=== PATIENT | female | born 1950 | race Caucasian/White ===

== ENCOUNTER 2018-07-16 10:05 | Outpatient (REF) | payer MEDICARE, BC, SELFPAY ==
[2018-07-16 12:34] LABS: HCT 39.1 % (36.0-46.0); HGB 12.9 g/dL (12.0-15.5); Mean Corpuscular Hemoglobin 30.1 pg (27.0-33.0); Mean Corpuscular Volume 91.4 fL (80-95); Mean Platelet Volume 11.1 fL (8.0-11.0); Platelet Count 160 x1000/uL (130-400); RBC 4.28 m/cumm (4.00-5.20); RBC Distribution Width 13.7 % (11.7-14.6); White Blood Cell Count 6.03 k/cumm (4.4-10.8)
[2018-07-16 12:40] LABS: ALT 28 U/L (12-78); AST 25 U/L (15-37); Albumin 3.8 g/dL (3.4-5.0); Alkaline Phosphatase 133 U/L (46-116); Bilirubin, Direct 0.24 mg/dL (0.00-0.20); Total Protein 8.2 g/dL (6.4-8.2)
== END 2018-07-16 10:25 ==
LOC: NCHCN 10:05
PROVIDERS: PCP Internal Medicine; Visit Provider Internal Medicine
DX: I10 Essential (primary) hypertension (principal)
CPT/HCPCS: 80076; 85027

== ENCOUNTER 2019-01-14 11:09 | Outpatient (REF) | payer MEDICARE, BC, SELFPAY ==
[2019-01-14 13:21] LABS: HCT 36.9 % (36.0-46.0); HGB 11.8 g/dL (12.0-15.5); Mean Corpuscular Hemoglobin 29.4 pg (27.0-33.0); Mean Corpuscular Volume 91.8 fL (80-95); Mean Platelet Volume 11.5 fL (8.0-11.0); Platelet Count 126 x1000/uL (130-400); RBC 4.02 m/cumm (4.00-5.20); RBC Distribution Width 13.6 % (11.7-14.6)
[2019-01-14 13:32] LABS: INR 1.1 (0.9-1.1); Prothrombin Time 11.4 sec (9.3-11.0)
[2019-01-14 13:43] LABS: ALT 27 U/L (12-78); AST 27 U/L (15-37); Albumin 3.6 g/dL (3.4-5.0); Alkaline Phosphatase 113 U/L (46-116); Anion Gap 10.7 mmol/L (3-11); BUN 16 mg/dL (7-18); Bilirubin, Total 0.8 mg/dL (0.2-1.0); CO2 23.3 mmol/L (21.0-32.0); CREATININE 0.89 mg/dL (0.55-1.02); Calcium 8.8 mg/dL (8.5-10.1); Chloride 109 mmol/L (98-107); Glucose 123 mg/dL (70-100); Potassium 4.3 mmol/L (3.5-5.1); Sodium 143 mmol/L (136-145); Total Protein 7.6 g/dL (6.4-8.2)
[2019-01-14 14:24] LABS: Absolute Basophil Count 0.03 k/cumm (0.0-0.2)
[2019-01-14 15:40] LABS: Absolute Lymphocyte Count 0.84 k/cumm (1.2-3.4); Absolute Monocyte Count 0.44 k/cumm (0.11-0.7); Absolute Neutrophil Count 1.39 k/cumm (1.2-6.7); Atypical Lymphocytes % 7
[2019-01-14 15:41] LABS: Diff Comment Manual Differential; Ovalocytes 2+
[2019-01-15 10:44] LABS: CA 19-9 58 U/mL (<35)
== END 2019-01-14 11:29 ==
LOC: NCHCN 11:09
PROVIDERS: PCP Internal Medicine; Visit Provider Internal Medicine
DX: D61.818 Other pancytopenia (principal); K83.09 Other cholangitis; R97.8 Other abnormal tumor markers
CPT/HCPCS: 80053; 85027; 82248; 85007; 85610; 86301

== ENCOUNTER 2019-03-25 00:39 | Outpatient (CLI) | payer MEDICARE, BC, SELFPAY ==
--- NOTE | 2019-03-25 15:30 | DI.MAMMO_ITS ---
SYMPTOMS/DIAGNOSIS: SCREENING, Z12.31 MAMMOGRAM: Mammograms were interpreted according to the usual protocol including computer analysis with CAD system, tomosynthesis and C view imaging. Comparison is made with exams from 2010 through 2017. The breasts are composed of heterogeneously dense fibroglandular tissue, breast density Category C. No suspicious masses or suspicious microcalcifications are seen. There has been no significant change. IMPRESSION: Category I, negative mammogram. Yearly screening mammography is recommended. [facility] ASSESSMENT OF FINDINGS: Negative. Category 1. Patient will receive a letter notifying them of these results. Bi-RADS category C. The breasts are heterogeneously dense, which may obscure small masses.
== END 2019-03-25 00:59 ==
PROVIDERS: PCP Internal Medicine; Visit Provider Internal Medicine
DX: Z12.31 Encounter for screening mammogram for malignant neoplasm of breast (principal)
CPT/HCPCS: 77063; 77067

== ENCOUNTER 2019-07-16 10:46 | Outpatient (REF) | payer MEDICARE, BC, SELFPAY ==
[2019-07-16 22:11] LABS: HCT 37.5 % (36.0-46.0); HGB 12.1 g/dL (12.0-15.5); Mean Corp. HGB Concentration 32.3 g/dL (32.0-36.0); Mean Corpuscular Hemoglobin 29.2 pg (27.0-33.0); Mean Corpuscular Volume 90.4 fL (80-95); Mean Platelet Volume 11.5 fL (8.0-11.0); Platelet Count 152 x1000/uL (130-400); RBC 4.15 m/cumm (4.00-5.20); White Blood Cell Count 4.79 k/cumm (4.4-10.8)
[2019-07-16 22:28] LABS: ALT 22 U/L (14-59); AST 22 U/L (15-37); Albumin 3.8 g/dL (3.4-5.0); Alkaline Phosphatase 113 U/L (46-116); Anion Gap 8.8 mmol/L (3-11); BUN 17 mg/dL (7-18); Bilirubin, Total 1.3 mg/dL (0.2-1.0); CO2 26.2 mmol/L (21.0-32.0); CREATININE 0.95 mg/dL (0.55-1.02); Calcium 9.2 mg/dL (8.5-10.1); Chloride 108 mmol/L (98-107); Estimated GFR 58.85 (mL/min/1.73m2); Glucose 116 mg/dL (74-106); Potassium 4.4 mmol/L (3.5-5.1); Sodium 143 mmol/L (136-145); Total Protein 7.7 g/dL (6.4-8.2)
[2019-07-16 23:02] LABS: INR 1.1 (0.9-1.1); Prothrombin Time 11.4 sec (9.3-11.0)
[2019-07-18 13:52] LABS: CA 19-9 76 U/mL (<35)
== END 2019-07-16 11:06 ==
LOC: NCHCN 10:46
PROVIDERS: PCP Internal Medicine; Visit Provider Internal Medicine
DX: D61.818 Other pancytopenia (principal); K83.01 Primary sclerosing cholangitis; K74.5 Biliary cirrhosis, unspecified; R97.8 Other abnormal tumor markers
CPT/HCPCS: 80053; 85027; 85610; 86301

== ENCOUNTER 2020-01-12 10:42 | Outpatient (REF) | payer MEDICARE, BC, SELFPAY ==
[2020-01-12 22:36] LABS: HCT 37.7 % (36.0-46.0); HGB 12.1 g/dL (12.0-15.5); Mean Corp. HGB Concentration 32.1 g/dL (32.0-36.0); Mean Corpuscular Hemoglobin 29.4 pg (27.0-33.0); Mean Corpuscular Volume 91.7 fL (80-95); Mean Platelet Volume 12.3 fL (8.0-11.0); Platelet Count 144 x1000/uL (130-400); RBC 4.11 m/cumm (4.00-5.20); RBC Distribution Width 13.8 % (11.7-14.6); White Blood Cell Count 4.66 k/cumm (4.4-10.8)
[2020-01-12 23:10] LABS: ALT 25 U/L (14-59); AST 22 U/L (15-37); Albumin 3.8 g/dL (3.4-5.0); Alkaline Phosphatase 108 U/L (46-116); Anion Gap 8.8 mmol/L (3-11); BUN 16 mg/dL (7-18); Bilirubin, Direct 0.23 mg/dL (0.00-0.20); CO2 27.2 mmol/L (21.0-32.0); CREATININE 1.02 mg/dL (0.55-1.02); Calcium 8.9 mg/dL (8.5-10.1); Chloride 107 mmol/L (98-107); Estimated GFR 54.05 (mL/min/1.73m2); Glucose 148 mg/dL (74-106); Potassium 4.3 mmol/L (3.5-5.1); Sodium 143 mmol/L (136-145); Total Protein 7.5 g/dL (6.4-8.2)
== END 2020-01-12 11:02 ==
LOC: NCHCN 10:42
PROVIDERS: PCP Internal Medicine; Visit Provider Internal Medicine
DX: D50.9 Iron deficiency anemia, unspecified (principal); I10 Essential (primary) hypertension; K74.5 Biliary cirrhosis, unspecified
CPT/HCPCS: 80053; 80076; 85027

== ENCOUNTER 2020-03-22 00:42 | Outpatient (CLI) | payer MEDICARE, BC, SELFPAY ==
--- NOTE | 2020-03-22 | DI.US_ITS ---
EXAM: US ABDOMEN CLINICAL HISTORY: EPIGASTRIC ABD PAIN,R10.13 TECHNIQUE: Ultrasound performed using standard protocol. COMPARISON: No exams were available for comparison FINDINGS: The hepatic parenchyma appears of increased echogenicity with a coarse echotexture. No focal hepatic lesion seen. There is cholelithiasis without gallbladder wall thickening or pericholecystic fluid c ollection. Negative sonographic Boss sign. No biliary dilatation. Note is made of an apparent thrombus in the splenic vein at the portal confluence. This is of uncert ain age with somewhat increased echogenicity of the apparent thrombus and no evidence of occlusion. Flow is normal directional in the portal circulation. Pancreas unremarkable in appearance by ultrasound criteria. The kidneys appear normal with no hydron ephrosis or nephrolithiasis. Abdominal aorta and IVC are of normal diameter. Spleen is mildly enlarged with splenic varices noted . IMPRESSION: Cholelithiasis without ultrasound evidence of acute cholecystitis. Splenic vein apparent thrombus, other etiologies including intraluminal neoplasm not absolutely exclu ded but extremely unlikely. Thrombus is nonocclusive. Hepatic coarse echotexture and increased echogenicity with splenomegaly, the patient reportedly has h epatic cirrhosis. 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 Normal directional portal flow noted. DATA REPOSITORY:
== END 2020-03-22 01:02 ==
PROVIDERS: PCP Internal Medicine; Visit Provider Internal Medicine
DX: K80.20 Calculus of gallbladder without cholecystitis without obstruction (principal); R10.13 Epigastric pain; I82.890 Acute embolism and thrombosis of other specified veins
CPT/HCPCS: 76700

== ENCOUNTER 2020-04-12 17:24 | Outpatient (REF) | payer MEDICARE, BC, SELFPAY ==
[2020-04-12 22:03] LABS: BUN 17 mg/dL (7-18); CREATININE 0.79 mg/dL (0.55-1.02)
== END 2020-04-12 17:44 ==
LOC: NCHCN 17:24
PROVIDERS: PCP Internal Medicine; Visit Provider Internal Medicine
DX: K80.20 Calculus of gallbladder without cholecystitis without obstruction (principal); K83.09 Other cholangitis; R93.3 Abnormal findings on diagnostic imaging of other parts of digestive tract; Z01.812 Encounter for preprocedural laboratory examination
CPT/HCPCS: 84520; 82565

== ENCOUNTER 2020-06-29 22:22 | Outpatient (REF) | payer MEDICARE, BC, SELFPAY ==
[2020-06-29 22:30] LABS: HCT 39.9 % (36.0-46.0); HGB 12.6 g/dL (11.2-15.7); MCH 29.6 pg (27.0-33.0); MCHC 31.6 % (32.0-36.0); MCV 93.7 fL (80-95); MPV 11.7 fL (8.0-11.0); Platelet Count 140 10^3/uL (130-400); RBC 4.26 10^6/uL (3.93-5.22); RDW 13.4 % (11.7-14.6); RDW-SD 45.7 fL; WBC 5.11 10^3/uL (4.4-10.8)
[2020-07-02 11:06] LABS: CA 19-9 61 U/mL (<35)
== END 2020-06-29 22:42 ==
LOC: NCHCN 22:22
PROVIDERS: PCP Internal Medicine; Visit Provider Internal Medicine
DX: R97.8 Other abnormal tumor markers (principal); D50.9 Iron deficiency anemia, unspecified
CPT/HCPCS: 85027; 86301

== ENCOUNTER 2020-12-28 15:24 | Outpatient (REF) | payer MEDICARE, BC, SELFPAY ==
[2020-12-28 13:40] LABS: HCT 37.4 % (36.0-46.0); HGB 12.3 g/dL (11.2-15.7); MCH 29.6 pg (27.0-33.0); MCHC 32.9 % (32.0-36.0); MCV 89.9 fL (80-95); MPV 11.7 fL (8.0-11.0); Platelet Count 148 10^3/uL (130-400); RBC 4.16 10^6/uL (3.93-5.22); RDW 13.6 % (11.7-14.6); RDW-SD 44.8 fL; WBC 5.89 10^3/uL (4.4-10.8)
[2020-12-28 13:42] LABS: INR 1.1 (0.9-1.1); Prothrombin Time 11.1 sec (9.3-11.0)
[2020-12-28 14:05] LABS: AST 26 U/L (15-37); Albumin 3.8 g/dL (3.4-5.0); Alkaline Phosphatase 137 U/L (46-116); Anion Gap 12.2 mmol/L (3-11); BUN 15 mg/dL (7-18); Bilirubin, Total 0.9 mg/dL (0.2-1.0); CO2 25.8 mmol/L (21.0-32.0); CREATININE 0.8 mg/dL (0.55-1.02); Calcium 9.1 mg/dL (8.5-10.1); Chloride 108 mmol/L (98-107); Sodium 146 mmol/L (136-145)
[2020-12-28 14:27] LABS: Glucose 151 mg/dL (74-106)
[2020-12-28 14:28] LABS: ALT 23 U/L (14-59); Bilirubin, Direct 0.2 mg/dL (0.0-0.2); Potassium 4.7 mmol/L (3.5-5.1)
[2020-12-29 10:08] LABS: CA 19-9 100 U/mL (<35)
== END 2020-12-28 15:25 | disposition home or self-care (01) ==
LOC: NCHCN 15:24
PROVIDERS: PCP Internal Medicine; Visit Provider Internal Medicine
DX: R97.8 Other abnormal tumor markers (principal); R93.5 Abnormal findings on diagnostic imaging of other abdominal regions, including retroperitoneum; R10.13 Epigastric pain; D61.818 Other pancytopenia; R53.83 Other fatigue; K74.5 Biliary cirrhosis, unspecified; D50.9 Iron deficiency anemia, unspecified; I10 Essential (primary) hypertension
CPT/HCPCS: 80053; 80076; 85027; 85610; 86301

== ENCOUNTER 2021-06-29 16:36 | Outpatient (REF) | payer MEDICARE, BC, SELFPAY ==
[2021-06-29 22:46] LABS: INR 1.1 (0.9-1.1); Prothrombin Time 11.1 sec (9.3-11.0)
[2021-06-29 22:52] LABS: ALT 21 U/L (14-59); AST 24 U/L (15-37); Albumin 3.9 g/dL (3.4-5.0); Alkaline Phosphatase 124 U/L (46-116); Anion Gap 11.2 mmol/L (3-11); BUN 19 mg/dL (7-18); Bilirubin, Total 1.2 mg/dL (0.2-1.0); CO2 23.8 mmol/L (21.0-32.0); CREATININE 0.8 mg/dL (0.55-1.02); Calcium 8.3 mg/dL (8.5-10.1); Chloride 106 mmol/L (98-107); Glucose 152 mg/dL (74-106); Sodium 141 mmol/L (136-145); Total Protein 7.6 g/dL (6.4-8.2)
[2021-07-01 09:55] LABS: CA 19-9 79 U/mL (<35)
== END 2021-06-29 16:37 | disposition home or self-care (01) ==
LOC: NCHCN 16:36
PROVIDERS: PCP Internal Medicine; Visit Provider Internal Medicine
DX: K74.5 Biliary cirrhosis, unspecified (principal); R97.8 Other abnormal tumor markers; I10 Essential (primary) hypertension
CPT/HCPCS: 80053; 85610; 86301

== ENCOUNTER 2021-08-25 16:20 | Outpatient (REF) | payer MEDICARE, BC, SELFPAY ==
[2021-08-25 21:11] LABS: Abs Immature Grans 0.01 10^3/uL (0.0-0.06); Absolute Basophil Count 0.08 10^3/uL (0.0-0.2); Absolute Eosinophil Count 0.26 10^3/uL (0.0-0.7); Absolute Lymphocyte Count 1.77 10^3/uL (1.2-3.4); Absolute Monocyte Count 0.76 10^3/uL (0.1-0.8); Absolute Neutrophil Count 3.49 10^3/uL (1.2-6.7); Basophils % 1.3; Eosinophils % 4.1; HCT 39.8 % (36.0-46.0); HGB 12.6 g/dL (11.2-15.7); Immature Grans % 0.2; Lymphocytes % 27.8; MCH 30.1 pg (27.0-33.0); MCHC 31.7 % (32.0-36.0); Monocytes % 11.9; Neutrophils % 54.7; Nucleated RBC 0 %; Platelet Count 154 10^3/uL (130-400); RBC 4.19 10^6/uL (3.93-5.22); RDW 13.6 % (11.7-14.6); RDW-SD 47.7 fL; WBC 6.37 10^3/uL (4.4-10.8)
[2021-08-25 21:23] LABS: ALT 14 U/L (14-59); AST 19 U/L (15-37); Albumin 3.8 g/dL (3.4-5.0); Alkaline Phosphatase 123 U/L (46-116); Anion Gap 10.2 mmol/L (3-11); BUN 18 mg/dL (7-18); Bilirubin, Total 0.9 mg/dL (0.2-1.0); CO2 26.8 mmol/L (21.0-32.0); CREATININE 1.1 mg/dL (0.55-1.02); Calcium 9.2 mg/dL (8.5-10.1); Chloride 108 mmol/L (98-107); Estimated GFR 49.25 (mL/min/1.73m2); Glucose 118 mg/dL (74-106); Potassium 4.7 mmol/L (3.5-5.1); Sodium 145 mmol/L (136-145); Total Protein 7.8 g/dL (6.4-8.2)
== END 2021-08-25 16:21 | disposition home or self-care (01) ==
LOC: NCHCN 16:20
PROVIDERS: PCP Internal Medicine; Visit Provider Internal Medicine
DX: R42 Dizziness and giddiness (principal)
CPT/HCPCS: 80053; 85025

== ENCOUNTER 2021-09-15 01:08 | Outpatient (CLI) | payer MEDICARE, BC, SELFPAY ==
--- NOTE | 2021-09-15 | DI.MAMMO_ITS ---
Exam(s) MAMMO SCREENING EXAM: MAMMO SCREENING CLINICAL HISTORY: SCREENING, Z12.39 TECHNIQUE: Bilateral full field digital CC and MLO mammographic images were obtained with 3D tomosyn thesis and utilizing computer aided detection (CAD). COMPARISON: Available for comparison. FINDINGS: Masses/Architectural Distortion: None seen. Microcalcifications: No suspicious pleomorphic-type are seen. Skin Thickening/Nipple Retraction: None. IMPRESSION: 1. No significant interval change with no specific features of malignancy noted. 2. Unless there is more urgent need, screening mammography is recommended, as per [employer] guidelines. BI-RADS Category 1 - Negative Breast Density - Category C - Heterogeneously dense Breast density category C or D implies that the patient has dense breast tissue. Dense breast tissue is very common and is not abnormal but dense breast tissue can make it harder to find cancer on a ma mmogram. Also, dense breast tissue may increase their breast cancer risk. This information about the result of the mammogram report was provided to the patient to raise their awareness. Use this report when you speak with the patient about their risks for breast cancer, which includes their family hist ory. At that time, you may recommend for more screening tests (Ultrasound or MRI) as they might be us eful based on their risk. A negative radiographic report should not delay biopsy if a dominant or clinically suspicious mass is present. Up to ten percent of cancers are not identified on mammography. A negative report may reinforce clinical impression. Adenosis and dense breasts may obscure an underlying neoplasm. False positive reports average 6 to 10%. Patient will receive a letter notifying them of these results.
== END 2021-09-15 01:28 ==
PROVIDERS: PCP Internal Medicine; Visit Provider Internal Medicine
DX: Z12.31 Encounter for screening mammogram for malignant neoplasm of breast (principal); R92.8 Other abnormal and inconclusive findings on diagnostic imaging of breast
CPT/HCPCS: 77063; 77067

== ENCOUNTER 2021-11-07 18:34 | Outpatient (REF) | payer MEDICARE, BC, SELFPAY ==
[2021-11-07 19:38] LABS: CREATININE 0.9 mg/dL (0.55-1.02)
== END 2021-11-07 18:35 | disposition home or self-care (01) ==
LOC: NCHCN 18:34
PROVIDERS: PCP Internal Medicine; Visit Provider Internal Medicine
DX: K74.5 Biliary cirrhosis, unspecified (principal)
CPT/HCPCS: 82565

== ENCOUNTER 2021-12-28 18:57 | Outpatient (REF) | payer MEDICARE, BC, SELFPAY ==
[2021-12-28 15:28] LABS: INR 1.1 (0.9-1.1); Prothrombin Time 11.3 sec (9.3-11.0)
[2021-12-28 15:54] LABS: ALT 20 U/L (14-59); AST 20 U/L (15-37); Albumin 3.9 g/dL (3.4-5.0); Alkaline Phosphatase 145 U/L (46-116); Anion Gap 10.5 mmol/L (3-11); BUN 16 mg/dL (7-18); Bilirubin, Total 1.1 mg/dL (0.2-1.0); CO2 25.5 mmol/L (21.0-32.0); CREATININE 1.1 mg/dL (0.55-1.02); Calcium 9.1 mg/dL (8.5-10.1); Chloride 110 mmol/L (98-107); Estimated GFR 49.25 (mL/min/1.73m2); Glucose 142 mg/dL (74-106); Sodium 146 mmol/L (136-145); Total Protein 7.8 g/dL (6.4-8.2)
[2021-12-30 10:45] LABS: CA 19-9 66 U/mL (<35)
== END 2021-12-28 18:58 | disposition home or self-care (01) ==
LOC: NCHCN 18:57
PROVIDERS: PCP Internal Medicine; Visit Provider Internal Medicine
DX: K74.5 Biliary cirrhosis, unspecified (principal); R97.8 Other abnormal tumor markers; D50.9 Iron deficiency anemia, unspecified; I10 Essential (primary) hypertension
CPT/HCPCS: 80053; 85610; 86301

== ENCOUNTER 2022-06-30 13:10 | Outpatient (REF) | payer MEDICARE, BC, SELFPAY ==
[2022-06-30 15:37] LABS: HCT 39.8 % (36.0-46.0); HGB 13.2 g/dL (11.2-15.7); MCH 30.4 pg (27.0-33.0); MCHC 33.2 % (32.0-36.0); MCV 92 fL (80-95); MPV 11.6 fL (8.0-11.0); Platelet Count 161 10^3/uL (130-400); RBC 4.34 10^6/uL (3.93-5.22); RDW 13.7 % (11.7-14.6); RDW-SD 46.6 fL; WBC 5.34 10^3/uL (4.4-10.8)
[2022-06-30 15:54] LABS: INR 1.1 (0.9-1.1)
[2022-06-30 16:08] LABS: ALT 21 U/L (14-59); AST 27 U/L (15-37); Albumin 3.9 g/dL (3.4-5.0); Alkaline Phosphatase 127 U/L (46-116); BUN 16 mg/dL (7-18); Bilirubin, Total 1.2 mg/dL (0.2-1.0); Calcium 9.4 mg/dL (8.5-10.1); Chloride 107 mmol/L (98-107); Estimated GFR 60.98 (mL/min/1.73m2); Glucose 139 mg/dL (74-106); Potassium 4.7 mmol/L (3.5-5.1); Sodium 145 mmol/L (136-145); Total Protein 7.9 g/dL (6.4-8.2)
[2022-07-03 09:21] LABS: CA 19-9 57 U/mL (<35)
== END 2022-06-30 13:11 | disposition home or self-care (01) ==
LOC: NCHCN 13:10
PROVIDERS: PCP Internal Medicine; Visit Provider Internal Medicine
DX: R97.8 Other abnormal tumor markers (principal); D50.9 Iron deficiency anemia, unspecified; D61.818 Other pancytopenia
CPT/HCPCS: 80053; 85027; 85610; 86301

== ENCOUNTER 2022-07-20 11:05 | Emergency (ER) | payer MEDICARE, BC, SELFPAY ==
--- NOTE | 2022-07-20 11:07 | W.ED.GENAD ---
Discharge Plan Disposition Patient Disposition: Home Condition: Stable Discharge Details Clinical Impression: Abdominal pain Primary Care Provider: Mj Carrera ED Provider: Quoc Beal Home Meds and New Rx's Prescriptions: Continued clobetasol 60 GM cream 15 gm Topical DAILY ZOVIRAX 2 GM CREAM..G. 2 gm Topical Q4H PRN Qty: 1 1RF Label Comments: pt has not used in a while 04/30/16 mupirocin calcium 15 GM cream 15 gm Topical omeprazole 40 MG capsule,delayed release(DR/EC) 40 mg PO DAILY docusate sodium [Colace] 100 MG capsule 100 mg PO BID nadolol 40 MG tablet 40 mg PO DAILY ondansetron 4 MG tablet,disintegrating 4 mg PO PRN Label Comments: pt has not used in a while 04.30.16 GNC Probiotic PO DAILY Qty: 1 Discharge Instructions Instructions: Abdominal Pain (ED), Biliary Colic (ED) Additional Instructions: At this time your work-up does not reveal any obvious emergent process. Clear liquid diet, advance fatty, fried, greasy foods. Please watch for new or worsening symptoms and return to the ER for any concerns. Lastly, I would like you to reach out to your PCP office, I spoke with them today regarding your visit, to discuss your ongoing symptoms, potential need for outpatient reevaluation through GI and/or surgery at a higher level of care given your sclerotic liver disease. Medical Decision Making This is a 71-year-old female with autoimmune liver sclerosis, known gallstones, anemia, hypertension, presenting to the ER reporting right abdominal and back pain that been present for the past 36 hours or so, came on gradually, maxed yesterday as a 9 out of 10, improved today down to a 5-10, currently asymptomatic. Reports minimal nausea which has resolved. Denies fever, chest pain, shortness of breath, change in bowel or bladder function. Patient reports decreased appetite because she is afraid to eat. Clinically evaluation is most consistent with biliary colic; however, given her age, will obtain EKG and a single troponin given the duration of her symptoms. Laboratory values reveal no evidence of leukocytosis. Electrolytes unremarkable, renal function reveals creatinine of 0.9 with a GFR of 69.20. Total bili is 1.5; however, when reviewing previous medical records it looks as though she does tend to run slightly elevated. AST and ALT normal. Alk phosphatase mildly elevated at 138, this too appears to be near her baseline. Lipase normal at 114. Troponin negative at less than 50. Ultrasound reveals a cirrhotic appearing liver, no biliary dilatation. Portal vein not visualized. Cholelithiasis and gallbladder polyps, no evidence of acute cholecystitis. I discussed the patient's work-up with Dr. Pope, patient has been seen by surgery-GI at [facility] in the past. Will likely need outpatient follow-up at higher level of care given her cirrhotic liver disease, this can likely happen at [facility] or [facility]. Discussed work-up with patient, discussed my conversation with her PCP office as well. Patient reports feeling well and is comfortable discharge. We did discuss dietary restrictions. Strict discharge and return precautions were provided. Patient understands, is agreeable to this plan, and has no additional questions or concerns upon discharge. This documentation was generated using [employer] system, please disregard any oddities of phrase or misspellings. Medical Records Medical records reviewed: Yes I reviewed the patient's medical records. Imaging Data Radiologic Study: Attestation: I personally reviewed and interpreted this imaging study as follows: Imaging: Ultrasound Radiologist's impression: Exam(s) US ABDOMEN LIMITED EXAM: US ABDOMEN LIMITED CLINICAL HISTORY: RUQ pain TECHNIQUE: Ultrasound abdomen performed using standard protocol. COMPARISON: CT ABD/PELVIS WO W CONTRAST from 02/20/2014 US US ABDOMEN from 03/22/2020 FINDINGS: LIVER: Thin normal limits of size. Heterogeneous echotexture worsening compared with prior. Nodular liver surface.. No focal liver lesions are seen.. Portal vein not visualized. GALLBLADDER: Cholelithiasis. Several polyps noted, largest measuring 9 millimeters. No evidence of wall thickening. No pericholecystic fluid identified. NIEVES'S SIGN: Negative. BILIARY SYSTEM: No intrahepatic or extrahepatic biliary ductal dilation. Right kidney: Not well visualized. Apparent loss of corticomedullary differentiation. No hydronephrosis. PANCREAS: Normal where visualized. ABDOMINAL AORTA AND IVC: Visualized portions normal caliber. ASCITES: None seen. IMPRESSION: Cirrhotic appearing liver. No biliary dilatation. Portal vein not visualized. Cholelithiasis and gallbladder polyps. No evidence of acute cholecystitis. Lab Data Lab results reviewed: Yes I reviewed the patient's lab results. Labs: Laboratory Tests Range/Units 07/20/22 07/20/22 07/20/22 11:15 11:15 11:15 WBC (4.4-10.8) 10^3/uL 8.33 RBC (3.93-5.22) 10^6/uL 4.50 Hgb (11.2-15.7) g/dL 13.4 Hct (36.0-46.0) % 40.3 MCV (80-95) fL 90 MCH (27.0-33.0) pg 29.8 MCHC (32.0-36.0) % 33.3 RDW (11.7-14.6) % 13.6 Plt Count (130-400) 10^3/uL 190 MPV (8.0-11.0) fL 10.3 Immature Gran % 0.4 Neutrophils % 66.6 Lymphocytes % 19.0 Monocytes % 10.8 Eosinophils % 2.6 Basophils % 0.6 Nucleated RBC % (0.0-0.3) % 0.0 Absolute Neutrophils (1.2-6.7) 10^3/uL 5.55 Absolute Lymphocytes (1.2-3.4) 10^3/uL 1.58 Absolute Monocytes (0.1-0.8) 10^3/uL 0.90 H Absolute Eosinophils (0.0-0.7) 10^3/uL 0.22 Absolute Basophils (0.0-0.2) 10^3/uL 0.05 Sodium (136-145) mmol/L 138 Potassium (3.5-5.1) mmol/L 3.8 Chloride (98-107) mmol/L 104 Carbon Dioxide (21.0-32.0) mmol/L 25.2 Anion Gap (3-11) mmol/L 8.8 BUN (7-18) mg/dL 14 Creatinine (0.55-1.02) mg/dL 0.9 Est GFR (CKD-EPI 2020) (mL/min/1.73m2) 69.20 Glucose (74-106) mg/dL 104 Calcium (8.5-10.1) mg/dL 9.3 Total Bilirubin (0.2-1.0) mg/dL 1.5 H AST (15-37) U/L 27 ALT (14-59) U/L 20 Alkaline Phosphatase (46-116) U/L 138 H Troponin I (<or=60) ng/L < 50 Total Protein (6.4-8.2) g/dL 8.5 H Albumin (3.4-5.0) g/dL 3.9 Lipase (73-393) U/L 114 Urine Color (Yellow) Urine Clarity (Clear) Urine pH (5-8) Ur Specific [place] (1.005-1.025) Urine Protein (Negative) mg/dL Urine Ketones (Negative) mg/dL Urine Blood (Negative) Urine Nitrite (Negative) Urine Bilirubin (Negative) Urine Urobilinogen (Up TO 0.2) EU/dL Ur Leukocyte Esterase (Negative) Urine RBC (0-2) HPF Urine WBC (0-5) HPF Ur Epithelial Cells (Negative) HPF Urine Crystals (Negative) HPF Urine Bacteria (Negative) HPF Urine Casts (Negative) LPF Urine Mucus (Negative) Ur Culture Indicated? Urine Glucose (Negative) mg/dL Range/Units 07/20/22 11:20 WBC (4.4-10.8) 10^3/uL RBC (3.93-5.22) 10^6/uL Hgb (11.2-15.7) g/dL Hct (36.0-46.0) % MCV (80-95) fL MCH (27.0-33.0) pg MCHC (32.0-36.0) % RDW (11.7-14.6) % Plt Count (130-400) 10^3/uL MPV (8.0-11.0) fL Immature Gran % Neutrophils % Lymphocytes % Monocytes % Eosinophils % Basophils % Nucleated RBC % (0.0-0.3) % Absolute Neutrophils (1.2-6.7) 10^3/uL Absolute Lymphocytes (1.2-3.4) 10^3/uL Absolute Monocytes (0.1-0.8) 10^3/uL Absolute Eosinophils (0.0-0.7) 10^3/uL Absolute Basophils (0.0-0.2) 10^3/uL Sodium (136-145) mmol/L Potassium (3.5-5.1) mmol/L Chloride (98-107) mmol/L Carbon Dioxide (21.0-32.0) mmol/L Anion Gap (3-11) mmol/L BUN (7-18) mg/dL Creatinine (0.55-1.02) mg/dL Est GFR (CKD-EPI 2020) (mL/min/1.73m2) Glucose (74-106) mg/dL Calcium (8.5-10.1) mg/dL Total Bilirubin (0.2-1.0) mg/dL AST (15-37) U/L ALT (14-59) U/L Alkaline Phosphatase (46-116) U/L Troponin I (<or=60) ng/L Total Protein (6.4-8.2) g/dL Albumin (3.4-5.0) g/dL Lipase (73-393) U/L Urine Color (Yellow) Yellow Urine Clarity (Clear) Clear Urine pH (5-8) 7.0 Ur Specific [place] (1.005-1.025) 1.015 Urine Protein (Negative) mg/dL Negative Urine Ketones (Negative) mg/dL Negative Urine Blood (Negative) Small H Urine Nitrite (Negative) Negative Urine Bilirubin (Negative) Negative Urine Urobilinogen (Up TO 0.2) EU/dL 0.2 Ur Leukocyte Esterase (Negative) Negative Urine RBC (0-2) HPF 3-5 H Urine WBC (0-5) HPF Negative Ur Epithelial Cells (Negative) HPF Rare Urine Crystals (Negative) HPF Negative Urine Bacteria (Negative) HPF Negative Urine Casts (Negative) LPF Negative Urine Mucus (Negative) Negative Ur Culture Indicated? No Urine Glucose (Negative) mg/dL Negative ECG Data Attestation: I personally reviewed and interpreted this ECG (s) as follows: Interpretation: Sinus rhythm, ventricular rate of 65, LVH, no STEMI HPI General Mode of arrival: ambulatory. Date/Time Provider Initiated Documentation: 07/20/22 11:06. Limitations to Documentation: no limitations. Information obtained by: patient. History of Present Illness 71 year old F presents to the emergency department with the chief complaint of RUQ pain, described as moderate, with intensity rated at 4 (yesterday was 9). Quality is described as aching, and is localized to the abdomen. Patient reports radiation to back. Patient started experiencing this day(s) (2) and it has been intermittent. No relieving factors improve symptom(s), No exacerbating factors reported . Patient notes nausea/vomiting (mild nausea, resolved now). Patient did receive the following treatments prior to arrival, none Related Data Home Medications Medication Instructions Recorded Confirmed clobetasol 0.05 % topical cream 15 gm topical DAILY 03/04/13 07/20/22 mupirocin calcium 2 % topical cream 15 gm topical 02/27/14 08/31/14 omeprazole 40 mg capsule,delayed 40 mg PO DAILY 02/16/15 07/20/22 release Gnc Probiotic PO DAILY ##1 07/07/15 docusate sodium 100 mg capsule 100 mg PO BID 07/07/15 07/20/22 (Colace) nadolol 40 mg tablet 40 mg PO DAILY 07/07/15 07/20/22 ondansetron 4 mg disintegrating 4 mg PO PRN 07/07/15 07/20/22 tablet Allergies Allergy/AdvReac Type Severity Reaction Status Date / Time chlorpheniramine polistirex Allergy Severe SOB AND Unverified 07/07/15 11:06 [From Tussionex] DIFFICULTY BREATHING hydrocodone polistirex Allergy Severe SOB AND Unverified 07/07/15 11:06 [From Tussionex] DIFFICULTY BREATHING nitrofurantoin Allergy Intermediate Unverified 07/20/22 11:26 [From Macrodantin] codeine AdvReac Intermediate DROWSINES Unverified 07/07/15 11:06 sulfamethoxazole AdvReac Unknown Skin Rash Unverified 04/30/16 10:47 [From Bactrim] trimethoprim [From Bactrim] AdvReac Unknown Skin Rash Unverified 04/30/16 10:47 Review of Systems Constitutional Constitutional: Denies fever(s) Cardiovascular Cardiovascular: Denies chest pain and Denies dyspnea Respiratory Respiratory: Denies cough and Denies dyspnea Gastrointestinal Gastrointestinal: Reports abdominal pain, Denies constipation, Denies diarrhea, Reports nausea and Denies vomiting Genitourinary Genitourinary: Denies dysuria Musculoskeletal Musculoskeletal: Reports back pain Integumentary/Breasts Skin/Breast: Denies rash PFSH All Active Problems (Updated 07/20/22 @ 14:07 by CHERISE Stark) Abdominal pain (Acute) Medical History Anemia Esophagitis Gastritis Hypertension Surgical History Appendectomy 1967 EGD - IV Sedation Family History Other Heart disease Hyperlipidemia Personal history of malignant neoplasm Social History Smoking/Tobacco Use Status: Former Tobacco Use Smoking risk assessment performed?: Yes Alcohol Intake: never Drug use: Never Substance use type: does not use Do you feel safe at home: Yes Do you feel safe in your relationship?: Yes Exam Const General: cooperative, healthy appearing, comfortable and no acute distress Orientation: alert, awake and oriented x3 HENMT Head: normal to inspection, normocephalic and atraumatic Eyes General: appearance normal, both eyes and all related structures Conjunctivae: conjunctivae normal Neck Neck: normal visual inspection, full ROM, no meningeal signs, trachea midline and supple Resp Effort & Inspection: normal respiratory effort and able to speak in complete sentences Auscultation: clear to auscultation bilaterally Cardio Rate: regular rate Rhythm: regular rhythm GI Inspection: normal to inspection Palpation: soft, not firm, no guarding, no pulsatile masses and nontender Auscultation: normal bowel sounds Back/Spine/Pelvis Back: no CVA tenderness and No back tenderness Skin General skin exam: no rashes or lesions noted Neuro General: patient alert, patient awake, moves all extremities and no focal motor deficits Sensory Exam: no sensory deficits noted Psych Appearance: grossly normal Mental Status: mental status grossly normal
[2022-07-20 11:09] VITALS: BP 154/84; PULSE 78; RESP 18; TEMP 36.5; O2SAT 97
[2022-07-20 11:29] LABS: Abs Immature Grans 0.03 10^3/uL (0.0-0.06); Absolute Basophil Count 0.05 10^3/uL (0.0-0.2); Absolute Eosinophil Count 0.22 10^3/uL (0.0-0.7); Absolute Lymphocyte Count 1.58 10^3/uL (1.2-3.4); Absolute Neutrophil Count 5.55 10^3/uL (1.2-6.7); Basophils % 0.6; Eosinophils % 2.6; HCT 40.3 % (36.0-46.0); HGB 13.4 g/dL (11.2-15.7); Immature Grans % 0.4; MCH 29.8 pg (27.0-33.0); MCHC 33.3 % (32.0-36.0); MCV 90 fL (80-95); MPV 10.3 fL (8.0-11.0); Monocytes % 10.8; Neutrophils % 66.6; Platelet Count 190 10^3/uL (130-400); RDW 13.6 % (11.7-14.6); RDW-SD 44.7 fL; WBC 8.33 10^3/uL (4.4-10.8)
[2022-07-20 11:32] LABS: Bilirubin Negative (Negative); Blood Small (Negative); Clarity Clear (Clear); Glucose Negative (Negative); Ketones Negative (Negative); Leukocyte Esterase Negative (Negative); Nitrite Negative (Negative); Specific Gravity 1.015 (1.005-1.025); Urobilinogen 0.2 EU/dL (Up TO 0.2)
[2022-07-20 11:38] LABS: Bacteria Negative HPF (Negative); C & S Indicated? No; Casts Negative LPF (Negative); Crystals Negative HPF (Negative); Epithelial Cells Rare HPF (Negative); Mucus Negative (Negative); WBC Negative HPF (0-5)
--- NOTE | 2022-07-20 11:45 | RT.EKG_ITS ---
APPROVED REPORT Exam: Resting ECG Reason for Exam: RUQ pain Patient Location: E HR:65 bpm ECG Measurements Heart Rate 65 AXIS NM 164 P 45 QRSd 84 QRS 10 QT 411 T 31 QTc 428 Conclusion Sinus rhythm...normal P axis, V-rate 60- 99 Left ventricular hypertrophy...multiple voltage criteria. Sinus. Normal axis. No STEMI. I have reviewed and interpreted ECG and agree with software generated interpretation.
[2022-07-20 11:57] LABS: ALT 20 U/L (14-59); AST 27 U/L (15-37); Albumin 3.9 g/dL (3.4-5.0); Alkaline Phosphatase 138 U/L (46-116); Anion Gap 8.8 mmol/L (3-11); BUN 14 mg/dL (7-18); Bilirubin, Total 1.5 mg/dL (0.2-1.0); CO2 25.2 mmol/L (21.0-32.0); CREATININE 0.9 mg/dL (0.55-1.02); Calcium 9.3 mg/dL (8.5-10.1); Chloride 104 mmol/L (98-107); Glucose 104 mg/dL (74-106); Lipase 114 U/L (73-393); Potassium 3.8 mmol/L (3.5-5.1); Sodium 138 mmol/L (136-145); Total Protein 8.5 g/dL (6.4-8.2)
--- NOTE | 2022-07-20 12:00 | DI.US_ITS ---
Exam(s) US ABDOMEN LIMITED EXAM: US ABDOMEN LIMITED CLINICAL HISTORY: RUQ pain TECHNIQUE: Ultrasound abdomen performed using standard protocol. COMPARISON: CT ABD/PELVIS WO W CONTRAST from 02/20/2014 US US ABDOMEN from 03/22/2020 FINDINGS: LIVER: Thin normal limits of size. Heterogeneous echotexture worsening compared with prior. Nodular liver surface.. No focal liver lesions are seen.. Portal vein not visualized. GALLBLADDER: Cholelithiasis. Several polyps noted, largest measuring 9 millimeters. No evidence of wall thickening. No pericholecystic fluid identified. NIEVES'S SIGN: Negative. BILIARY SYSTEM: No intrahepatic or extrahepatic biliary ductal dilation. Right kidney: Not well visualized. Apparent loss of corticomedullary differentiation. No hydronephr osis. PANCREAS: Normal where visualized. ABDOMINAL AORTA AND IVC: Visualized portions normal caliber. ASCITES: None seen. IMPRESSION: Cirrhotic appearing liver. No biliary dilatation. Portal vein not visualized. Cholelithiasis and gallbladder polyps. No evidence of acute cholecystitis. Findings called to [facility]oc Beal emergency department provider. DATA REPOSITORY:
[2022-07-20 12:14] LABS: Troponin I < 50 ng/L (<or=60)
[2022-07-20 14:22] VITALS: BP 112/61; PULSE 71; RESP 16; O2SAT 96
== END 2022-07-20 14:26 | disposition home or self-care (01) ==
PROVIDERS: Emergency Provider Physician Assistant; PCP Internal Medicine
DX: R10.9 Unspecified abdominal pain (principal); R74.8 Abnormal levels of other serum enzymes; K80.20 Calculus of gallbladder without cholecystitis without obstruction; D41.4 Neoplasm of uncertain behavior of bladder; I10 Essential (primary) hypertension; Z87.19 Personal history of other diseases of the digestive system
CPT/HCPCS: 36415; 80053; 83690; 93005; 99284; 76705; 81003; 81015; 84484; 85025; 93010; 99285

== ENCOUNTER 2022-12-27 10:33 | Outpatient (REF) | payer MEDICARE, BC, SELFPAY ==
[2022-12-27 14:26] LABS: HCT 38.6 % (36.0-46.0); MCH 30.5 pg (27.0-33.0); MCHC 33.7 % (32.0-36.0); MCV 91 fL (80-95); MPV 10.9 fL (8.0-11.0); Platelet Count 143 10^3/uL (130-400); RBC 4.26 10^6/uL (3.93-5.22); RDW 13.4 % (11.7-14.6); RDW-SD 45.1 fL; WBC 5.42 10^3/uL (4.4-10.8)
[2022-12-27 15:55] LABS: ALT 19 U/L (14-59); AST 25 U/L (15-37); Albumin 3.8 g/dL (3.4-5.0); Alkaline Phosphatase 124 U/L (46-116); Anion Gap 10.9 mmol/L (3-11); BUN 12 mg/dL (7-18); Bilirubin, Total 1.2 mg/dL (0.2-1.0); CO2 25.1 mmol/L (21.0-32.0); Calcium 9.1 mg/dL (8.5-10.1); Chloride 109 mmol/L (98-107); Estimated GFR 60.61 (mL/min/1.73m2); Glucose 162 mg/dL (74-106); Potassium 4.3 mmol/L (3.5-5.1); Sodium 145 mmol/L (136-145); Total Protein 7.8 g/dL (6.4-8.2)
[2022-12-29 09:22] LABS: CA 19-9 64 U/mL (<35)
== END 2022-12-27 10:34 | disposition home or self-care (01) ==
LOC: NCHCN 10:33
PROVIDERS: PCP Internal Medicine; Visit Provider Internal Medicine
DX: R97.8 Other abnormal tumor markers (principal); I10 Essential (primary) hypertension; Z00.00 Encounter for general adult medical examination without abnormal findings; R53.83 Other fatigue; K74.5 Biliary cirrhosis, unspecified; K83.01 Primary sclerosing cholangitis
CPT/HCPCS: 80053; 85027; 86301

== ENCOUNTER 2023-06-28 14:54 | Outpatient (REF) | payer MEDICARE, BC, SELFPAY ==
[2023-06-28 17:17] LABS: Abs Immature Grans 0.01 10^3/uL (0.0-0.06); Absolute Basophil Count 0.07 10^3/uL (0.0-0.2); Absolute Eosinophil Count 0.41 10^3/uL (0.0-0.7); Absolute Lymphocyte Count 1.53 10^3/uL (1.2-3.4); Absolute Monocyte Count 0.53 10^3/uL (0.1-0.8); Absolute Neutrophil Count 3.84 10^3/uL (1.2-6.7); Basophils % 1.1; Eosinophils % 6.4; HCT 38.3 % (36.0-46.0); HGB 12.4 g/dL (11.2-15.7); Immature Grans % 0.2; Lymphocytes % 23.9; MCH 30.1 pg (27.0-33.0); MCHC 32.4 % (32.0-36.0); MCV 93 fL (80-95); MPV 11.4 fL (8.0-11.0); Monocytes % 8.3; Neutrophils % 60.1; Platelet Count 183 10^3/uL (130-400); RBC 4.12 10^6/uL (3.93-5.22); RDW-SD 44.4 fL; WBC 6.39 10^3/uL (4.4-10.8)
[2023-06-28 17:26] LABS: INR 1.2 (0.9-1.1); PTT Activated 28.7 sec (23.6-32.8); Prothrombin Time 11.5 sec (9.1-11.1)
[2023-06-28 17:32] LABS: Iron 125 ug/dL (50-170); Total Iron Binding Capacity 428 ug/dL (250-450); Transferrin Sat 29 % (15-50)
[2023-06-28 17:42] LABS: ALT 18 U/L (14-59); AST 22 U/L (15-37); Albumin 3.7 g/dL (3.4-5.0); Alkaline Phosphatase 168 U/L (46-116); Anion Gap 7.9 mmol/L (3-11); BUN 16 mg/dL (7-18); Bilirubin, Total 1.3 mg/dL (0.2-1.0); CO2 27.1 mmol/L (21.0-32.0); Calcium 9.1 mg/dL (8.5-10.1); Chloride 107 mmol/L (98-107); Estimated GFR 60.61 (mL/min/1.73m2); Ferritin 28 ng/mL (8-252); Glucose 175 mg/dL (74-106); Potassium 4.6 mmol/L (3.5-5.1); Sodium 142 mmol/L (136-145); Total Protein 7.9 g/dL (6.4-8.2)
[2023-07-02 18:07] LABS: CA 19-9 55 U/mL (<35)
== END 2023-06-28 14:55 | disposition home or self-care (01) ==
LOC: NCHCN 14:54
PROVIDERS: PCP Internal Medicine; Visit Provider Internal Medicine
DX: K74.5 Biliary cirrhosis, unspecified (principal); I10 Essential (primary) hypertension; G25.81 Restless legs syndrome; R53.83 Other fatigue; R97.8 Other abnormal tumor markers
CPT/HCPCS: 80053; 82728; 83540; 83550; 85025; 85610; 85730; 86301

== ENCOUNTER 2023-08-15 11:31 | Emergency (ER) | payer MEDICARE, BC, SELFPAY ==
[2023-08-15] VITALS (32 sets, daily range): BP systolic 123–157; BP diastolic 56–93; PULSE 56–75; RESP 12–22; TEMP 36.8; O2SAT 96
--- NOTE | 2023-08-15 11:30 | RT.EKG_ITS ---
APPROVED REPORT Exam: Resting ECG Reason for Exam: Chest pain Patient Location: E HR:68 bpm ECG Measurements Heart Rate 68 AXIS MA 170 P 62 QRSd 80 QRS 0 QT 425 T 26 QTc 451 Conclusion Sinus rhythm...normal P axis, V-rate 60- 99
--- NOTE | 2023-08-15 12:15 | DI.RAD_ITS ---
Exam(s) XR CHEST 2V PA LATERAL EXAM: XR CHEST 2V PA LATERAL CLINICAL HISTORY: shortness of breath, chest pain. TECHNIQUE: 2D digital imaging was performed. COMPARISON: No exams were available for comparison FINDINGS: 2 views: Heart size is normal. The mediastinum is not widened. Lungs are clear. No infiltrates nor pleural effusions. IMPRESSION: No acute pulmonary findings. DATA REPOSITORY: RADIATION DOSE DELIVERED:
[2023-08-15 12:40] LABS: Abs Immature Grans 0.02 10^3/uL (0.0-0.06); Absolute Basophil Count 0.05 10^3/uL (0.0-0.2); Absolute Eosinophil Count 0.34 10^3/uL (0.0-0.7); Absolute Lymphocyte Count 1.16 10^3/uL (1.2-3.4); Absolute Monocyte Count 0.52 10^3/uL (0.1-0.8); Absolute Neutrophil Count 2.95 10^3/uL (1.2-6.7); Eosinophils % 6.7; HCT 34.7 % (36.0-46.0); HGB 11.6 g/dL (11.2-15.7); Immature Grans % 0.4; MCH 29.7 pg (27.0-33.0); MCHC 33.4 % (32.0-36.0); MCV 89 fL (80-95); MPV 10.2 fL (8.0-11.0); Monocytes % 10.3; Neutrophils % 58.6; Platelet Count 116 10^3/uL (130-400); RDW 13.4 % (11.7-14.6); RDW-SD 43.7 fL; WBC 5.04 10^3/uL (4.4-10.8)
[2023-08-15] MEDS: Mylanta Suspension 30 ML CUP PO (12:41)
[2023-08-15 12:47] LABS: Bilirubin Negative (Negative); Blood Trace-intact (Negative); Clarity Clear (Clear); Glucose Negative (Negative); Ketones Negative (Negative); Leukocyte Esterase Negative (Negative); Nitrite Negative (Negative); Urobilinogen 0.2 mg/dL (Up to 0.2); pH 6.5 (5-8)
[2023-08-15 12:52] LABS: ALT 15 U/L (14-59); AST 21 U/L (15-37); Albumin 3.5 g/dL (3.4-5.0); Alkaline Phosphatase 166 U/L (46-116); Anion Gap 10.7 mmol/L (3-11); BUN 12 mg/dL (7-18); Bilirubin, Total 1.1 mg/dL (0.2-1.0); CO2 24.3 mmol/L (21.0-32.0); CREATININE 0.9 mg/dL (0.55-1.02); Calcium 9.5 mg/dL (8.5-10.1); Chloride 108 mmol/L (98-107); Estimated GFR 68.77 (mL/min/1.73m2); Glucose 126 mg/dL (74-106); Lipase 42 U/L (16-77); Potassium 3.8 mmol/L (3.5-5.1); Sodium 143 mmol/L (136-145); Total Protein 7.9 g/dL (6.4-8.2)
[2023-08-15 12:56] LABS: WBC 0-2 HPF (0-5)
[2023-08-15 12:57] LABS: Bacteria Negative HPF (Negative); C & S Indicated? No; Casts Negative LPF (Negative); Crystals Negative HPF (Negative); Epithelial Cells Rare HPF (Negative); Mucus Negative (Negative)
--- NOTE | 2023-08-15 13:00 | DI.US_ITS ---
Exam(s) US ABDOMEN LIMITED EXAM: US ABDOMEN LIMITED CLINICAL HISTORY: RUQ pain TECHNIQUE: Ultrasound abdomen performed using standard protocol. COMPARISON: US US ABDOMEN LIMITED from 07/20/2022 FINDINGS: There is no ascites evident. LIVER: Somewhat cirrhotic appearing liver is again noted with heterogeneous echotexture throughout th e liver. No focal hepatic lesions. GALLBLADDER/BILIARY: There are shadowing gallstones noted. No prominent gallbladder wall edema nor p ericholecystic fluid. The common hepatic duct isnot dilated, measuring 4mm at the level of missy hepatis. PANCREAS: There is no evidence of pancreatic mass nor dilatation of the pancreatic duct. RIGHT KIDNEY:No evidence of solid mass, calculus, nor hydronephrosis. No cortical cysts evident. IMPRESSION: 1. Multiple gallstones noted. No obvious gallbladder wall edema nor dilatation of the biliary tree. 2. Cirrhotic appearing liver. No liver masses evident. 3. There is no ascites. DATA REPOSITORY:
[2023-08-15 13:01] LABS: NT-proBNP 151 pg/mL (<300); Troponin I < 50 ng/L (< or =60)
--- NOTE | 2023-08-15 15:31 | ED.GENADUL_ITS ---
HPI General Date/Time Provider Initiated Documentation: 08/15/23 12:12 . HPI Narrative: This 72-year-old female presents with report of chest pain, 1 episode last evening after having dinner. Reports followed by an additional episode today after taking her carvedilol, new medication per patient. She endorses multiple medication changes in the past week, and recently switched from nadolol to carvedilol she took her first dose a week ago and had her pantoprazole decreased by half twice a day. She denies history of chest pain in the past. She denies any fever or chills. Denies any calf pain or swelling, recent flights, surgeries, long drives. States her pain came on while she was supine after dinner and the episode this morning was also nonexertional. History of hypertension, denies history of hyperlipidemia. Denies any tobacco use. Denies personal history of coronary artery disease. Has not had a stress test in the past. Denies any recent upper respiratory symptoms Related Data Home Medications Medication Instructions Recorded Confirmed clobetasol 0.05 % topical cream 15 gm topical DAILY 03/04/13 08/15/23 mupirocin calcium 2 % topical cream 15 g topical TID 02/27/14 08/15/23 omeprazole 40 mg capsule,delayed 40 mg PO DAILY 02/16/15 08/15/23 release [facility] Probiotic PO DAILY ##1 07/07/15 docusate sodium 100 mg capsule 100 mg PO BID 07/07/15 08/15/23 (Colace) nadolol 40 mg tablet 40 mg PO DAILY 07/07/15 08/15/23 carvedilol 6.25 mg tablet mg 08/15/23 nadolol 80 mg tablet mg PO DAILY 08/15/23 pantoprazole 20 mg tablet,delayed mg PO 08/15/23 release pantoprazole 40 mg tablet,delayed mg PO 08/15/23 release ursodiol 300 mg capsule mg 08/15/23 Allergies Allergy/AdvReac Type Severity Reaction Status Date / Time chlorpheniramine polistirex Allergy Severe SOB AND Unverified 08/15/23 11:43 [From Tussionex] DIFFICULTY BREATHING hydrocodone polistirex Allergy Severe SOB AND Unverified 08/15/23 11:43 [From Tussionex] DIFFICULTY BREATHING nitrofurantoin Allergy Intermediate Unverified 08/15/23 11:43 [From Macrodantin] codeine AdvReac Intermediate DROWSINES Unverified 08/15/23 11:43 sulfamethoxazole AdvReac Unknown Skin Rash Unverified 08/15/23 11:43 [From Bactrim] trimethoprim [From Bactrim] AdvReac Unknown Skin Rash Unverified 08/15/23 11:43 General Stated Complaint: Chest Pain GINA: 3 Course Vital Signs Vital signs: Vital Signs Temperature 36.8 C 08/15/23 11:35 Pulse 72 08/15/23 11:35 Pulse Oximetry 96 08/15/23 11:35 Temperature 36.8 C 08/15/23 11:48 Temperature Source Temporal Artery Scan 08/15/23 11:48 Pulse 70 08/15/23 11:48 Respiratory Rate 16 08/15/23 12:12 Respiratory Effort Normal 08/15/23 12:12 Respiratory Depth Normal 08/15/23 12:12 Respiratory Pattern Normal 08/15/23 12:12 Blood Pressure 157/73 H 08/15/23 11:48 Blood Pressure Position Sitting 08/15/23 11:35 Pulse Oximetry 96 08/15/23 11:48 Oxygen Delivery Method Room Air 08/15/23 11:48 Oxygen Flow Rate 0 08/15/23 11:48 Pain Level 2 08/15/23 12:12 Lab/Test Results Lab/Test Results: Laboratory Tests Range/Units 08/15/23 08/15/23 12:20 12:35 WBC (4.4-10.8) 10^3/uL 5.04 RBC (3.93-5.22) 10^6/uL 3.90 L Hgb (11.2-15.7) g/dL 11.6 Hct (36.0-46.0) % 34.7 L MCV (80-95) fL 89 MCH (27.0-33.0) pg 29.7 MCHC (32.0-36.0) % 33.4 RDW (11.7-14.6) % 13.4 Plt Count (130-400) 10^3/uL 116 L MPV (8.0-11.0) fL 10.2 Immature Gran % 0.4 Neutrophils % 58.6 Lymphocytes % 23.0 Monocytes % 10.3 Eosinophils % 6.7 Basophils % 1.0 Nucleated RBC % (0.0-0.3) % 0.0 Absolute Neutrophils (1.2-6.7) 10^3/uL 2.95 Absolute Lymphocytes (1.2-3.4) 10^3/uL 1.16 L Absolute Monocytes (0.1-0.8) 10^3/uL 0.52 Absolute Eosinophils (0.0-0.7) 10^3/uL 0.34 Absolute Basophils (0.0-0.2) 10^3/uL 0.05 Sodium (136-145) mmol/L 143 Potassium (3.5-5.1) mmol/L 3.8 Chloride (98-107) mmol/L 108 H Carbon Dioxide (21.0-32.0) mmol/L 24.3 Anion Gap (3-11) mmol/L 10.7 BUN (7-18) mg/dL 12 Creatinine (0.55-1.02) mg/dL 0.9 Est GFR (CKD-EPI 2020) (mL/min/1.73m2) 68.77 Glucose (74-106) mg/dL 126 H Calcium (8.5-10.1) mg/dL 9.5 Total Bilirubin (0.2-1.0) mg/dL 1.1 H AST (15-37) U/L 21 ALT (14-59) U/L 15 Alkaline Phosphatase (46-116) U/L 166 H Troponin I (< or =60) ng/L < 50 NT-Pro-B Natriuret Pep (<300) pg/mL 151 Total Protein (6.4-8.2) g/dL 7.9 Albumin (3.4-5.0) g/dL 3.5 Lipase (16-77) U/L 42 Urine Color (Yellow) Yellow Urine Clarity (Clear) Clear Urine pH (5-8) 6.5 Ur Specific [place] (1.005-1.025) 1.010 Urine Protein (Negative) mg/dL Negative Urine Ketones (Negative) mg/dL Negative Urine Blood (Negative) Trace-intact H Urine Nitrite (Negative) Negative Urine Bilirubin (Negative) Negative Urine Urobilinogen (Up to 0.2) mg/dL 0.2 Ur Leukocyte Esterase (Negative) Negative Urine RBC (0-2) HPF 3-5 H Urine WBC (0-5) HPF 0-2 Ur Epithelial Cells (Negative) HPF Rare Urine Crystals (Negative) HPF Negative Urine Bacteria (Negative) HPF Negative Urine Casts (Negative) LPF Negative Urine Mucus (Negative) Negative Ur Culture Indicated? No Urine Glucose (Negative) mg/dL Negative Medical Decision Making 72-year-old female presenting in no acute distress, has had 2 episodes of chest pain both of which have self resolved, nonexertional in nature, describes as pressure, distal pulses intact all 4 extremities, reproducible epigastric tenderness on exam, lungs clear to auscultation, cardiac rate rhythm regular, EKG without acute abnormality, troponin negative, pending repeat troponin Vital stable Given a dose of Maalox, significant improvement in symptoms While I am unable to completely exclude cardiac etiology of patient's complaints, I think 2 troponin levels that are negative is reassuring and that she is likely stable for discharge home with PCP follow-up and outpatient stress test at the discretion of her new primary care provider I will place patient on Pepcid in addition to her pantoprazole and add Maalox as needed She will be signed out to oncoming provider pending repeat troponin level, if this is negative she will be written for discharge home Low suspicion clinically for pulmonary embolism, pulse of 70, respirations 16, oxygenation 96% on room air No abdominal bruit or pulsatile mass, low suspicion for aortic dissection No CVA tenderness Alert and oriented x 4 Given the threshold to return with new or worsening presentation Quality:SDOH Health Related Social Needs: No Data to Display PFSH All Active Problems (Updated 08/15/23 @ 15:39 by CHERISE Craft) Atypical chest pain (Acute) Medical History Anemia Esophagitis Gastritis Hypertension Surgical History Appendectomy 1967 EGD - IV Sedation Family History Other Heart disease Hyperlipidemia Personal history of malignant neoplasm Social History Smoking/Tobacco Use Status: Former Tobacco Use Smoking risk assessment performed?: Yes Alcohol Intake: never Drug use: Never Substance use type: does not use Do you feel safe at home: Yes Do you feel safe in your relationship?: Yes Sign Out Sign Out Data: Sign Out Comment: pending repeat troponin and dispo Last updated by Angy Zendejas PA at 08/15/23 15:50 Discharge Plan Disposition Patient Disposition: Home Discharge Details Clinical Impression: Atypical chest pain Primary Care Provider: Mj Carrera ED Provider: Yung Arguelles Home Meds and New Rx's Prescriptions: Continued clobetasol 60 GM cream 15 gm Topical DAILY mupirocin calcium 15 GM cream 15 g Topical TID omeprazole 40 MG capsule,delayed release(DR/EC) 40 mg PO DAILY docusate sodium [Colace] 100 MG capsule 100 mg PO BID nadolol 40 MG tablet 40 mg PO DAILY GNC Probiotic PO DAILY Qty: 1 carvedilol 6.25 mg tablet Patient Comments: TAKE ONE TABLET BY MOUTH TWICE A DAY WITH MEALS nadolol 80 mg tablet PO DAILY Patient Comments: TAKE ONE TABLET BY MOUTH EVERY DAY +CIPLA BRAND ONLY+ pantoprazole 20 mg tablet,delayed release (DR/EC) PO Patient Comments: TAKE ONE TABLET BY MOUTH EVERY DAY pantoprazole 40 mg tablet,delayed release (DR/EC) PO Patient Comments: TAKE ONE TABLET BY MOUTH EVERY DAY ursodiol 300 mg capsule Patient Comments: TAKE ONE CAPSULE BY MOUTH TWICE A DAY Discharge Instructions Instructions: Chest Pain (ED) Additional Instructions: Add Pepcid daily dosing for Pepcid 20 mg twice daily with your pantoprazole Malays Maalox or Mylanta for breakthrough discomfort if it improves her symptoms Follow-up with your doctor, I am placing you on follow-up for reassessment within the next week Return earlier should you have new or worsening complaints I recommend a low-fat diet and decreased caffeinated products, citrus, tomato- based products see if it helps her symptoms Discharge Data Discharge Date/Time-TO BE ENTERED AT DEPARTURE: 08/15/23 16:39
[2023-08-15 16:19] LABS: Troponin I < 50 ng/L (< or =60)
--- NOTE | 2023-08-15 16:31 | ED.PROG_ITS ---
Date of service: 08/15/23 Time of Service: 16:31 Medical Decision Making Patient received in sign-out with pending 3hr trop for some chest pain last night, likely gastritis with recent reduction in pantoprazole dosing and large meal of cheese & charcuterie. See prior provider's thorough evaluation and discharge. Repeat troponin negative. Discharged home. Medical Records Medical records reviewed: Yes I reviewed the patient's medical records. Quality:[facility] Health Related Social Needs: No Data to Display Sign Out Sign Out Data: Sign Out Comment: pending repeat troponin and dispo Last updated by Angy Zendejas PA at 08/15/23 15:50 Discharge Plan Disposition Patient Disposition: Home Discharge Details Clinical Impression: Atypical chest pain Primary Care Provider: Mj Carrera ED Provider: Yung Arguelles Home Meds and New Rx's Prescriptions: Continued clobetasol 60 GM cream 15 gm Topical DAILY mupirocin calcium 15 GM cream 15 g Topical TID omeprazole 40 MG capsule,delayed release(DR/EC) 40 mg PO DAILY docusate sodium [Colace] 100 MG capsule 100 mg PO BID nadolol 40 MG tablet 40 mg PO DAILY GNC Probiotic PO DAILY Qty: 1 carvedilol 6.25 mg tablet Patient Comments: TAKE ONE TABLET BY MOUTH TWICE A DAY WITH MEALS nadolol 80 mg tablet PO DAILY Patient Comments: TAKE ONE TABLET BY MOUTH EVERY DAY +CIPLA BRAND ONLY+ pantoprazole 20 mg tablet,delayed release (DR/EC) PO Patient Comments: TAKE ONE TABLET BY MOUTH EVERY DAY pantoprazole 40 mg tablet,delayed release (DR/EC) PO Patient Comments: TAKE ONE TABLET BY MOUTH EVERY DAY ursodiol 300 mg capsule Patient Comments: TAKE ONE CAPSULE BY MOUTH TWICE A DAY Discharge Instructions Instructions: Chest Pain (ED) Additional Instructions: Add Pepcid daily dosing for Pepcid 20 mg twice daily with your pantoprazole Malays Maalox or Mylanta for breakthrough discomfort if it improves her symptoms Follow-up with your doctor, I am placing you on follow-up for reassessment within the next week Return earlier should you have new or worsening complaints I recommend a low-fat diet and decreased caffeinated products, citrus, tomato- based products see if it helps her symptoms
== END 2023-08-15 16:39 | disposition home or self-care (01) ==
PROVIDERS: Physician Assistant; Emergency Provider Physician Assistant; PCP Internal Medicine
DX: R07.9 Chest pain, unspecified (principal); I10 Essential (primary) hypertension; Z87.891 Personal history of nicotine dependence
CPT/HCPCS: 00123; 36415; 80053; 83690; 93005; 99284; 71046; 76705; 81003; 81015; 83880; 84484; 85025; 93010

== ENCOUNTER → 2023-09-03 01:13 | Outpatient (CLI) | payer MEDICARE, BC, SELFPAY ==
--- NOTE | 2023-09-03 | DI.NM_ITS ---
APPROVED REPORT Exam: Pharmacologic Patient Location: Out-Patient Room/Bed: Stress Nurse: Inge Guillen RN Ordering Provider:ERICK CALHOUN, Contact Number: [phone] BMI: 29.86 Baseline Rhythm: Sinus Rhythm Indications: Chest pain, SOB Medical History Medical History: HTN Cardiac Medications: Carvedilol, pantoprazole, pepcid Allergies: Hydrocodone, tussionex, macrodantin, bactrim Cardiac Risk Factors: Family hx, HTN Previous Cardiac Procedures: None Pretest Chest Pain Characteristics: None Exercise History: Sedentary Physical Disabilities: None Lung Sounds: Clear to auscultation Heart Sounds: Regular Stress Test Details Test: Pharmacologic stress was paired with low level exercise. Reason for pharmacologic stress test: Patient unable to come off beta jacob. Nuclear Acquisition: Rest Tc-99m/Stress Tc-99m 1 day Rest Isotope: Tc-99m Sestamibi. Dose: 11.0 Date: 09/03/2023 Injection Time: 1100 Stress Isotope: Tc-99m Sestamibi. Dose: 31.0 Date: 09/03/2023 Injection Time: 12:55 HR Resting HR Supine: 73 bpm Max Heart Rate (APMHR): 149.865807 bpm Resting HR Standin bpm Target HR (85% APMHR): 126.724712 bpm Max HR Achieved: 110 bpm % of APMHR: 73.83 Recovery HR: 81 bpm BP Resting BP Supine: 188/88 mmHg Resting BP Standin/82 mmHg Max BP: 188/88 mmHg Recovery BP: 178/76 mmHg ECG Resting ECG: Sinus Rhythm Ectopy: None Stress ECG: Sinus Tachycardia ST Change: Nondiagnostic low heart rate Arrhythmia: Rare PVC Recovery ECG: Sinus Rhythm Recovery ST Change: Nondiagnostic low heart rate Recovery Arrhythmia: None Clinical Stress Symptoms: Mild SOB Angina Score: None Rate Pressure Product: 14710 Stress ECG Conclusion 1. 1. Normal clinical response 2. 2. Nondiagnostic ECG 3. 3. Normal BP response 4. 4. Nuclear findings reported separately Stress Test Summary STAGE HR BP SpO2 Symptoms NOTES Supine 73 188/88 98 Standing 66 188/82 1 min post Lexiscan injection 105 174/76 Mild SOB 3 min post Lexiscan injection 99 182/80 96 6 min post Lexiscan injection 81 178/76 All symptoms resolved MPI Conclusion 1. Normal myocardial perfusion,no ischemia or infarct. 2. Normal LV motion and function, EF 60%. Radiologist Interpretation Radiologist agrees with Marine Biologist's Interpretation. Radiologist Interpretation by: Jitendra Calhoun MD Interpretation Date/Time: 09/03/2023 15:36:27
[2023-09-03] MEDS: Regadenoson 0.4 MG/5 ML SYR IVP (13:19)
== END ==
PROVIDERS: PCP Internal Medicine; Visit Provider Family Medicine
DX: R07.9 Chest pain, unspecified (principal)
CPT/HCPCS: 78452; 93016; 93018; 93017; J2785

== ENCOUNTER → 2023-11-14 03:25 | Outpatient (CLI) | payer MEDICARE, BC, SELFPAY ==
--- NOTE | 2023-11-14 14:03 | DI.RAD_ITS ---
Exam(s) XR HIP RT COMPLETE AP PELVIS EXAM: XR HIP RT COMPLETE AP PELVIS CLINICAL HISTORY: RT HIP PAIN, M25.551. TECHNIQUE: 2D digital imaging was performed. Two views COMPARISON: No exams were available for comparison FINDINGS: BONES: No acute fracture is present. No bony destructive lesion is seen. JOINTS: No dislocation present. Hip joint spaces are maintained. No significant acetabular spurring . SI joints and pubic symphysis are unremarkable. SOFT TISSUE: Normal. IMPRESSION: No acute abnormality. DATA REPOSITORY: RADIATION DOSE DELIVERED:
--- NOTE | 2023-11-14 14:03 | DI.RAD_ITS ---
Exam(s) XR LUMBAR SPINE COMPLETE EXAM: XR LUMBAR SPINE COMPLETE CLINICAL HISTORY: LOW BACK PAIN, M54.50. TECHNIQUE: 2D digital imaging was performed. Five views. COMPARISON: No exams were available for comparison FINDINGS: BONES: No fracture or destructive lesion. Vertebral body heights are maintained. Moderate facet hype rtrophy identified, greatest at L4-5 and L5-S1.. DISKS: Intervertebral disc spaces are maintained. Small endplate osteophytes. ALIGNMENT: Lumbar spinal alignment is within normal limits. SOFT TISSUE: Multiple calcified gallstones. IMPRESSION: Mild degenerative disc changes. Moderate facet degenerative changes in the lower lumbar spine. DATA REPOSITORY: RADIATION DOSE DELIVERED:
== END ==
PROVIDERS: PCP Nurse Practitioner Family; Visit Provider Nurse Practitioner Family
DX: M54.50 Low back pain, unspecified (principal); M51.36 Other intervertebral disc degeneration, lumbar region
CPT/HCPCS: 72110; 73502

== ENCOUNTER 2023-12-18 11:22 | Outpatient (REF) | payer MEDICARE, BC, SELFPAY ==
[2023-12-18 14:26] LABS: HCT 39.9 % (36.0-46.0); HGB 13.1 g/dL (11.2-15.7); MCH 30.6 pg (27.0-33.0); MCHC 32.8 % (32.0-36.0); MCV 93 fL (80-95); MPV 11.6 fL (8.0-11.0); Platelet Count 146 10^3/uL (130-400); RBC 4.28 10^6/uL (3.93-5.22); RDW 13.9 % (11.7-14.6); RDW-SD 47.2 fL; WBC 5.71 10^3/uL (4.4-10.8)
[2023-12-18 14:37] LABS: INR 1.2 (0.9-1.1); Prothrombin Time 11.5 sec (9.1-11.1)
[2023-12-18 14:57] LABS: Iron 168 ug/dL (50-170); Total Iron Binding Capacity 393 ug/dL (250-450); Transferrin Sat 43 % (15-50)
== END 2023-12-18 11:23 | disposition home or self-care (01) ==
LOC: NCHCN 11:22
PROVIDERS: PCP Family Medicine; Visit Provider Family Medicine
DX: K74.60 Unspecified cirrhosis of liver (principal)
CPT/HCPCS: 85027; 83540; 83550; 85610; 85730

== ENCOUNTER 2023-12-31 15:14 | Outpatient (REF) | payer MEDICARE, BC, SELFPAY ==
[2023-12-31 17:36] LABS: ALT 20 U/L (14-59); AST 19 U/L (15-37); Albumin 3.7 g/dL (3.4-5.0); Alkaline Phosphatase 157 U/L (46-116); Anion Gap 11.4 mmol/L (3-11); BUN 14 mg/dL (7-18); Bilirubin, Total 1.3 mg/dL (0.2-1.0); CO2 23.6 mmol/L (21.0-32.0); Calcium 9.1 mg/dL (8.5-10.1); Chloride 110 mmol/L (98-107); Estimated GFR 60.23 (mL/min/1.73m2); Glucose 121 mg/dL (74-106); Lipase 45 U/L (16-77); Potassium 3.9 mmol/L (3.5-5.1); Sodium 145 mmol/L (136-145); Total Protein 7.4 g/dL (6.4-8.2)
== END 2023-12-31 15:15 | disposition home or self-care (01) ==
LOC: NCHCN 15:14
PROVIDERS: PCP Family Medicine; Visit Provider Family Medicine
DX: R10.9 Unspecified abdominal pain (principal)
CPT/HCPCS: 80053; 83690

== ENCOUNTER → 2024-01-14 04:57 | Outpatient (CLI) | payer MEDICARE, BC, SELFPAY ==
--- NOTE | 2024-01-14 | DI.CT_ITS ---
Exam(s) CT ABDOMEN PELVIS W EXAM: CT ABDOMEN PELVIS W CLINICAL HISTORY: ABD PAIN, R10.9, RUQ/RLQ PAIN SINCE 12/26. TECHNIQUE: Imaging Protocol: Axial computed tomography images with coronal and sagittal reformatted images were created and reviewed CONTRAST MATERIAL: Intravenous: Omnipaque 350 Contrast volume:100 ml Oral: yes / COMPARISON: CT ABD/PELVIS WO W CONTRAST from 02/20/2014 CT,NM,TMT NM MPI REST STRESS GRP from 09/03/2023 CR XR LUMBAR SPINE COMPLETE from 11/14/2023 CR XR HIP RT COMPLETE AP PELVIS from 11/14/2023 FINDINGS: ABDOMEN and PELVIS: Lung Bases: No acute findings. Esophageal varices. Question small hiatal hernia. Liver: Mildly nodular, cirrhotic appearance. No suspicious mass. Gallbladder and biliary tract: Multiple gallstones. No wall thickening. No biliary dilation. Pancreas: Normal density. No abnormal calcifications or inflammatory process. No evidence of mass. Spleen: Enlarged. 14 cm in length. Varices near spleen. Kidneys: Normal size, contour and axis. No radiodense stones. No obstructive uropathy. No suspicious masses seen. Adrenal glands: No masses seen. Vasculature: Abdominal aorta non-dilated. Markedly dilated left gonadal vein. Dilated left-sided pe lvic veins. Varices in the left upper quadrant and periesophageal region. Soft tissues: Unremarkable. Bladder: No gross wall thickening. No calculi.No focal mass. Bowel: No obstruction. No bowel wall thickening. Appendix not visualized. No right lower quadrant inflammatory changes. Peritoneal cavity: No ascites. No focal collection. No mesenteric inflammatory response. Bones: Unremarkable for age. Reproductive organs: Unremarkable. Lymph nodes: No pathologically enlarged lymph nodes. IMPRESSION:: Cirrhotic appearing liver. Splenomegaly. Left upper quadrant and esophageal varices. Dilated left gonadal vein in left pelvic veins. RADIATION DOSE DELIVERED: Total DLP DATA REPOSITORY: All CT scans at this facility are submitted to the National Radiology Data Registry (NRDR) Dose Index Registry (DIR) with the [employer] ([employer]). RADIATION OPTIMIZATION: All CT scans at this facility use at least one of these dose optimization te chniques: automated exposure control; mA and/or kV adjustment per patient size (includes targeted exa ms where dose is matched to clinical indication); or iterative reconstruction.
[2024-01-14] MEDS: Barium Sulfate 2% W/V-Berry Smoothie 450 ML BTL PO ×2 (11:37→11:38)
[2024-01-14] MEDS: Normal Saline - Diluent 50 ML VIAL IJ (13:38)
[2024-01-14] MEDS: Omnipaque 350 MG/ML 500 ML BTL-Imaging package 100 ML IJ (13:38)
== END ==
PROVIDERS: PCP Family Medicine; Visit Provider Family Medicine
DX: K76.0 Fatty (change of) liver, not elsewhere classified (principal)
CPT/HCPCS: 74177

== ENCOUNTER 2024-04-07 13:17 | Outpatient (REF) | payer MEDICARE, BC, SELFPAY ==
[2024-04-07 15:34] LABS: TSH (W/Ref FT4) 2.66 uIU/mL (0.36-3.74)
== END 2024-04-07 13:18 | disposition home or self-care (01) ==
LOC: NCHCN 13:17
PROVIDERS: PCP Family Medicine; Visit Provider Family Medicine
DX: R68.89 Other general symptoms and signs (principal)
CPT/HCPCS: 84443

== ENCOUNTER 2024-06-24 18:36 | Outpatient (REF) | payer MEDICARE, BC, SELFPAY ==
[2024-06-24 15:37] LABS: ALT 19 U/L (14-59); AST 20 U/L (15-37); Albumin 3.6 g/dL (3.4-5.0); Alkaline Phosphatase 170 U/L (46-116); Anion Gap 12.7 mmol/L (3-11); BUN 14 mg/dL (7-18); Bilirubin, Total 1.26 mg/dL (0.2-1.0); CO2 22.3 mmol/L (21.0-32.0); Calcium 8.7 mg/dL (8.5-10.1); Chloride 108 mmol/L (98-107); Estimated GFR 60.23 (mL/min/1.73m2); Glucose 160 mg/dL (74-106); Potassium 4.1 mmol/L (3.5-5.1); Sodium 143 mmol/L (136-145); Total Protein 7.4 g/dL (6.4-8.2)
== END 2024-06-24 18:37 | disposition home or self-care (01) ==
LOC: NCHCN 18:36
PROVIDERS: PCP Family Medicine; Visit Provider Family Medicine
DX: I10 Essential (primary) hypertension (principal)
CPT/HCPCS: 80053

== ENCOUNTER 2024-07-07 16:16 | Outpatient (REF) | payer MEDICARE, BC, SELFPAY ==
[2024-07-07 16:20] LABS: Calculated LDL 82 mg/dL (<100); Cholesterol 139 mg/dL (<200); HDL Cholesterol 47 mg/dL (40-60); Triglyceride 51 mg/dL (<150); Vitamin D 25 Total 76.9 ng/mL (30-100)
== END 2024-07-07 16:17 | disposition home or self-care (01) ==
LOC: NCHCN 16:16
PROVIDERS: PCP Family Medicine; Visit Provider Family Medicine
DX: Z13.220 Encounter for screening for lipoid disorders (principal); M85.89 Other specified disorders of bone density and structure, multiple sites
CPT/HCPCS: 80061; 82306

== ENCOUNTER 2024-07-08 01:35 | Outpatient (CLI) | payer MEDICARE, BC, SELFPAY ==
--- NOTE | 2024-07-08 10:54 | DI.RAD_ITS ---
Exam(s) XR CHEST 2V PA LATERAL EXAM: XR CHEST 2V PA LATERAL CLINICAL HISTORY: COUGH, R05.9. TECHNIQUE: 2D digital imaging was performed. COMPARISON: CR XR CHEST 2V PA LATERAL from 08/15/2023 FINDINGS: 2 views: Heart size is normal. The mediastinum is not widened. Lungs are clear. No infiltrates nor pleural effusions. IMPRESSION: No acute pulmonary findings. DATA REPOSITORY: RADIATION DOSE DELIVERED:
== END 2024-07-08 01:55 ==
LOC: DI 01:36
PROVIDERS: PCP Family Medicine; Visit Provider Family Medicine
DX: R05.9 Cough, unspecified (principal)
CPT/HCPCS: 71046

== ENCOUNTER 2024-07-24 00:15 | Outpatient (CLI) | payer MEDICARE, BC, SELFPAY ==
--- NOTE | 2024-07-24 | DI.DEXA_ITS ---
Exam(s) XR DEXA BONE DENSITY W/WO VASQUEZ EXAM: XR DEXA BONE DENSITY W/WO VASQUEZ CLINICAL HISTORY: M85.88 Other specified disorders of bone density and structure TECHNIQUE: Hologic Horizon C densitometer analysis of left hip, lumbar spine and left forearm. Lat eral survey image of the thoracic and lumbar spine. COMPARISON: CR XR LUMBAR SPINE COMPLETE from 11/14/2023 FINDINGS: Lateral view of the thoracic and lumbar spine shows no evidence of compression fractures. Bone mineral density measurements of the lumbar spine correspond to a total T-score of -2.1, in the osteopenic range. Bone mineral density measurements of the left hip correspond to a total T-score of -1.4. The femora l neck T-score is -1.1, in the osteopenic range. Theleft forearm bone mineral density measurements correspond to a T-score of the distal 3rd of -2.9, in the osteoporotic range. IMPRESSION: Osteopenia of the spine and hip. Osteoporosis of the forearm.
== END 2024-07-24 00:35 ==
LOC: DI 00:15
PROVIDERS: PCP Family Medicine; Visit Provider Family Medicine
DX: M85.88 Other specified disorders of bone density and structure, other site (principal)
CPT/HCPCS: 77080

== ENCOUNTER 2024-12-23 15:03 | Outpatient (REF) | payer MEDICARE, BC, SELFPAY ==
[2024-12-23 15:35] LABS: HCT 36.3 % (36.0-46.0); HGB 12.2 g/dL (11.2-15.7); MCH 30.7 pg (27.0-33.0); MCHC 33.6 % (32.0-36.0); MCV 91 fL (80-95); Platelet Count 131 10^3/uL (130-400); RBC 3.97 10^6/uL (3.93-5.22); RDW 13.3 % (11.7-14.6); RDW-SD 44.6 fL; WBC 5.18 10^3/uL (4.4-10.8)
[2024-12-23 16:05] LABS: ALT 15 U/L (14-59); AST 26 U/L (15-37); Albumin 3.5 g/dL (3.4-5.0); Alkaline Phosphatase 160 U/L (46-116); Anion Gap 10.6 mmol/L (3-11); BUN 11 mg/dL (7-18); Bilirubin, Total 1.2 mg/dL (0.2-1.0); CO2 24.4 mmol/L (21.0-32.0); CREATININE 0.9 mg/dL (0.55-1.02); Calcium 8.9 mg/dL (8.5-10.1); Chloride 106 mmol/L (98-107); Estimated GFR 67.92 (mL/min/1.73m2); Glucose 183 mg/dL (74-106); Sodium 141 mmol/L (136-145); Total Protein 7.3 g/dL (6.4-8.2)
[2024-12-24 09:19] LABS: CA 19-9 52 U/mL (<35)
== END 2024-12-23 15:04 | disposition home or self-care (01) ==
LOC: NCHCN 15:03
PROVIDERS: PCP Family Medicine; Visit Provider Family Medicine
DX: I10 Essential (primary) hypertension (principal); K74.5 Biliary cirrhosis, unspecified; R53.83 Other fatigue
CPT/HCPCS: 80053; 85027; 86301

== ENCOUNTER 2025-01-30 21:01 | Observation (INO) | payer MEDICARE, BC, SELFPAY ==
[2025-01-30] VITALS (21 sets, daily range): BP systolic 137–196; BP diastolic 46–86; PULSE 66–92; RESP 18–22; TEMP 36.8; O2SAT 93–96
--- NOTE | 2025-01-30 21:14 | W.ED.GENAD ---
Discharge Plan Disposition Patient Disposition: Admit to [facility] Condition: Stable Discharge Details Clinical Impression: Abdominal pain, Enlarged gallbladder, Hypomagnesemia Primary Care Provider: Lucy Swann ED Provider: Mack Robledo Free[place] Meds and New Rx's Prescriptions: No Action clobetasol 60 GM cream 15 gm Topical DAILY mupirocin calcium 15 GM cream 15 g Topical TID omeprazole 40 MG capsule,delayed release(DR/EC) 40 mg PO DAILY docusate sodium [Colace] 100 MG capsule 100 mg PO BID nadolol 40 MG tablet 40 mg PO DAILY GNC Probiotic PO DAILY Qty: 1 carvedilol 6.25 mg tablet Patient Comments: TAKE ONE TABLET BY MOUTH TWICE A DAY WITH MEALS nadolol 80 mg tablet PO DAILY Patient Comments: TAKE ONE TABLET BY MOUTH EVERY DAY +CIPLA BRAND ONLY+ pantoprazole 20 mg tablet,delayed release (DR/EC) PO Patient Comments: TAKE ONE TABLET BY MOUTH EVERY DAY pantoprazole 40 mg tablet,delayed release (DR/EC) PO Patient Comments: TAKE ONE TABLET BY MOUTH EVERY DAY ursodiol 300 mg capsule Patient Comments: TAKE ONE CAPSULE BY MOUTH TWICE A DAY HPI General Mode of arrival: ambulatory. Date/Time Provider Initiated Documentation: 01/30/25 21:14. Limitations to Documentation: no limitations. Information obtained by: patient, RN notes reviewed and old records reviewed. HPI Narrative: Patient presents to the ED with 24-hour history of worsening abdominal pain in the right upper quadrant. 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 She has known gallstones and has been evaluated by 2 different surgeons who have declined removing her gallbladder due to her cirrhosis. Patient reports right upper quadrant pain that began last evening and has been present throughout the day. She has had nausea but no vomiting. She is unable to take a deep breath because of pain but does not feel short of breath. She has not had a fever that she is aware of. She is still urinating. She finally came into ED as pain has continued and worsened. Related Data Home Medications ?Medication ?Instructions ?Recorded ?Confirmed clobetasol 0.05 % topical cream 15 gm topical DAILY 03/04/13 01/30/25 mupirocin calcium 2 % topical cream 15 g topical TID 02/27/14 01/30/25 omeprazole 40 mg capsule,delayed 40 mg PO DAILY 02/16/15 01/30/25 release Gnc Probiotic PO DAILY ##1 07/07/15 docusate sodium 100 mg capsule 100 mg PO BID 07/07/15 01/30/25 (Colace) nadolol 40 mg tablet 40 mg PO DAILY 07/07/15 01/30/25 carvedilol 6.25 mg tablet mg 08/15/23 nadolol 80 mg tablet mg PO DAILY 08/15/23 pantoprazole 20 mg tablet,delayed mg PO 08/15/23 release pantoprazole 40 mg tablet,delayed mg PO 08/15/23 release ursodiol 300 mg capsule mg 08/15/23 Allergies Allergy/AdvReac Type Severity Reaction Status Date / Time chlorpheniramine polistirex Allergy Severe SOB AND Unverified 01/30/25 21:25 (From Tussionex) DIFFICULTY BREATHING hydrocodone polistirex (From Allergy Severe SOB AND Unverified 01/30/25 21:25 Tussionex) DIFFICULTY BREATHING nitrofurantoin (From Allergy Intermediate Other (See Unverified 01/30/25 21:25 Macrodantin) Comment) codeine AdvReac Intermediate DROWSINES Unverified 01/30/25 21:25 sulfamethoxazole (From AdvReac Unknown Skin Rash Unverified 01/30/25 21:25 Bactrim) trimethoprim (From Bactrim) AdvReac Unknown Skin Rash Unverified 01/30/25 21:25 General GINA: 3 Exam Narrative Exam Narrative: Const: WDWN elderly female in NAD. VS per triage. HEENT: NC/AT. Normal facial exam. Neck: Supple. Trachea midline. Lungs: Normal respiratory effort. Lungs are clear. Cor: RRR without murmur. Good radial pulses. GI: Soft/ND. Tender RUQ with guarding. Neuro: A+O x 3. Normal speech, mentation, gait. Cranial nerves II - XII grossly intact. No gross motor or sensory deficit. Ext: No C/C/E. Medical Decision Making Patient presented to ED with 24 hours of right upper quadrant abdominal pain that has been worsening. She has nauseated but has not vomited. She has had no fever. She has PSC with resulting cirrhosis and known gallstones. Has been declined for cholecystectomy twice due to her liver disease. She is tender in the right upper quadrant. Will place IV and start fluids and give morphine and Zofran for symptoms. Will obtain laboratory studies to compare to baseline as well as CT scan. Patient's pain much improved with a single dose of morphine. Laboratory studies with a normal white count and hemoglobin. Her VBG shows respiratory alkalosis likely due to splinting and tachypnea related to the pain. Chemistries pretty unremarkable. Magnesium is low at 1.4 and is being repleted. CT scan does show cholelithiasis with a distended gallbladder which has been present on previous scans and MRIs done at [facility]. 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 She has evidence of atelectasis base of both lungs likely related to her splinting. Basically appears to be stable compared to previous scans that I was able to review in the [facility] system. Discussed findings with patient. She is much more comfortable after the morphine. Still having pain but able to breathe better. Does not appear to have any evidence of infection or changes at this time. Discussed with hospitalist regarding observation admission for fluids overnight, as needed pain medication, reevaluation in morning. Patient accepted for admission to hospitalist team. Medical Records Medical records reviewed: Yes I reviewed the patient's medical records. Medical records narrative: PCP and [facility] records Imaging Data Radiologic Study: Imaging: CT Scan Radiologist's impression: CT abd/pelvis - IMPRESSION: 1. Cholelithiasis. The gallbladder is moderately distended, likely representing physiological variation. If there is clinical suspicion for acute cholecystitis, then a right upper quadrant ultrasound can be considered. 2. Cirrhosis with splenomegaly, extensive gastroesophageal varicosities, and varicosities seen within the upper abdomen. 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 Trace free pelvic fluid, which may represent minimal ascites. 3. Mild circumferential wall thickening within the urinary bladder, which may be due to underdistension. Cystitis could have this appearance, in the correct clinical context. 4. Multiple dilated enhancing vessels surround the uterus bilaterally, which can be seen with pelvic congestion syndrome, in the correct clinical context. 5. Mild dependent atelectasis or infiltrate within the bilateral lower lobes, right greater than left. Thank you for allowing us to participate in the care of your patient. Dictated and Authenticated by: Bernie Kong MD Lab Data Lab results reviewed: Yes I reviewed the patient's lab results. Lab results narrative: see MDM PFSH All Active Problems (Updated 01/31/25 @ 00:47 by Mack Robledo MD) Abdominal pain (Acute) Enlarged gallbladder (Acute) Nausea & vomiting (Acute) Hypomagnesemia (Acute) Medical History HTN (hypertension) Esophageal varices Cirrhosis Primary sclerosing cholangitis Esophagitis Gastritis Anemia Surgical History EGD - IV Sedation Appendectomy 1967 Family History Other Heart disease Hyperlipidemia Personal history of malignant neoplasm Social History Smoking/Tobacco Use Status: Former Tobacco Use Smoking risk assessment performed?: Yes Alcohol Intake: never Drug use: Never Substance use type: does not use Do you feel safe at home: Yes Do you feel safe in your relationship?: Yes
[2025-01-30 21:41] LABS: BE (Venous) -2 mmol/L (-2-3); HCO3 (Venous) 22 mmol/L (23-28); O2 Sat (Venous) 95 %; TCO2 (Venous) 20 mmol/L (24-29); pCO2 (Venous) 31 mmHg (41-51); pO2 (Venous) 69 mmHg
[2025-01-30 21:45] LABS: Abs Immature Grans 0.03 10^3/uL (0.0-0.06); HCT 38.2 % (36.0-46.0); HGB 12.6 g/dL (11.2-15.7); Immature Grans % 0.4 %; MCH 30.1 pg (27.0-33.0); MCHC 33.0 % (32.0-36.0); MCV 91 fL (80-95); MPV 10.1 fL (8.0-11.0); Platelet Count 126 10^3/uL (130-400); RBC 4.18 10^6/uL (3.93-5.22); RDW 13.3 % (11.7-14.6); RDW-SD 44.4 fL; WBC 7.00 10^3/uL (4.4-10.8)
[2025-01-30] MEDS: Normal Saline 1,000 ML 1000 ML IV (21:47)
[2025-01-30] MEDS: MORPHine 4 MG/ML SYR IVP (21:48)
[2025-01-30] MEDS: Ondansetron 4 MG/2 ML VIAL IVP (21:48)
[2025-01-30 22:01] LABS: ALT 17 U/L (14-59); AST 31 U/L (15-37); Albumin 3.8 g/dL (3.4-5.0); Alkaline Phosphatase 174 U/L (46-116); Anion Gap 12.3 mmol/L (3-11); BUN 14 mg/dL (7-18); Bilirubin, Total 1.7 mg/dL (0.2-1.0); CO2 22.7 mmol/L (21.0-32.0); Calcium 9.6 mg/dL (8.5-10.1); Chloride 105 mmol/L (98-107); Estimated GFR 78.24 (mL/min/1.73m2); Glucose 120 mg/dL (74-106); Lipase 38 U/L (<78); Magnesium 1.4 mg/dL (1.8-2.4); Potassium 4.5 mmol/L (3.5-5.1); Sodium 140 mmol/L (136-145); Total Protein 8.1 g/dL (6.4-8.2)
[2025-01-30] MEDS: Omnipaque 350 MG/ML 100 ML BTL 75 ML IJ (22:07)
[2025-01-30] MEDS: Normal Saline - Diluent 50 ML VIAL IJ (22:09)
[2025-01-30 22:21] LABS: Glucose Negative (Negative)
--- NOTE | 2025-01-30 22:21 | DI.CT_ITS ---
Exam(s) CT ABDOMEN PELVIS W EXAM: CT ABDOMEN PELVIS W CLINICAL HISTORY: RUQ abd pain/tenderness. TECHNIQUE: Imaging Protocol: Axial computed tomography images with coronal and sagittal reformatted images were created and reviewed CONTRAST MATERIAL: Intravenous: Omnipaque-350 75cc Oral: None COMPARISON: CT CT ABDOMEN PELVIS W from 01/14/2024 FINDINGS: VISUALIZED LUNG BASES: Mild increased markings in the right lung base. No pleural effusions.. ABDOMEN: There is a small amount of ascites in the dependent aspect of the pelvis. LIVER: Liver is again noted to be cirrhotic. No evidence of obvious hepatic neoplasm. No dilated intrahepatic ducts. Multiple varices are again noted related to portal hypertension. There are prominent esophageal varices as well as other varices collateralization within the abdomen in this patient who has a chronically occluded main portal vein with cavernous transformation GALLBLADDER/BILIARY: Multiple gallstones are seen on the dependent wall the gallbladder. Gallbladder is mildly distended but without gallbladder wall edema evident. PANCREAS: No evidence of pancreatic mass nor dilatation of the pancreatic duct. SPLEEN: Splenomegaly is again noted. Craniocaudal spleen measurement is 15 cm. There are no splenic lesions. The splenic vein is patent and wide as is the superior mesenteric vein. The main portal vein is occluded and there is cavernous transformation evident . ADRENALS: There are no significant adrenal masses. KIDNEYS:There are few tiny benign cysts in the right kidney which do not require further workup. A slightly larger 1 cm cyst is noted in the anterior aspect of the left kidney. There are no solid renal masses. There is a solitary nonobstructive calculus in the lower pole region of the left kidney measuring 3 mm. There is no hydronephrosis nor hydroureter. There are no radiopaque calculi seen in the nondistended urinary bladder lumen nor at the ureterovesical junctions. ABDOMINAL AORTA: Abdominal aorta is not enlarged. Also no iliac artery aneurysms. LYMPH NODES:There is no retroperitoneal nor paraaortic adenopathy. ABDOMINAL WALL: No evidence of significant anterior abdominal wall nor inguinal hernia. GI: There is no evidence of bowel obstruction, free air, nor abscess. PELVIS: GI: Appendix is not seen but there are no secondary signs of acute appendicitis.There is no significant sigmoid diverticular disease LYMPH NODES: There is no intrapelvic nor inguinal adenopathy. REPRODUCTIVE:.There are prominent veins on both sides the uterus which drain into prominent bilateral gonadal veins. The right gonadal vein drains into the IVC and the enlarged left gonadal vein drains into the left renal vein (which is not thrombosed). No ovarian masses seen URINARY BLADDER: Contracted. OSSEOUS: No fractures and no significant osseous lesions. IMPRESSION: 1. The liver is again noted be cirrhotic and there is splenomegaly and multiple collaterals including esophageal varices. There is also occlusion of the main portal vein with cavernous transformation again evident. There is only a small amount of ascites in the dependent aspect of the pelvis. There is no evidence of obvious hepatic neoplasm. 2. Cholelithiasis. There are multiple gallstones. Mild gallbladder distension but no gallbladder wall edema. Correlation with clinical findings recommended to determine if right upper quadrant ultrasound is required. 3. There are multiple dilated enhancing vessels on both sides the uterus which drain into prominent bilateral gonadal veins, this finding consistent with significant pelvic congestion syndrome. 4. These findings were evident on prior CT scan of 01/14/2024. Preliminary virtual Radiology report was reviewed RADIATION DOSE DELIVERED: 543.96mGy.cm Total DLP DATA REPOSITORY: All CT scans at this facility are submitted to the National Radiology Data Registry (NRDR) Dose Index Registry (DIR) with the [employer] (ACR). RADIATION OPTIMIZATION: All CT scans at this facility use at least one of these dose optimization techniques: automated exposure control; mA and/or kV adjustment per patient size (includes targeted exams where dose is matched to clinical indication); or iterative reconstruction.
[2025-01-30 22:30] LABS: C & S Indicated? No; WBC 0-2 HPF (0-5)
--- NOTE | 2025-01-30 23:14 | DI.VRAD_ITS ---
PROCEDURE INFORMATION: Exam: CT Abdomen And Pelvis With Contrast Exam date and time: 01/30/2025 10:06 PM Age: 74 years old Clinical indication: Abdominal pain; Localized; Right upper quadrant (ruq); Ruq abd pain/tenderness TECHNIQUE: Imaging protocol: Computed tomography of the abdomen and pelvis with contrast. Radiation optimization: All CT scans at this facility use at least one of these dose optimization techniques: automated exposure control; mA and/or kV adjustment per patient size (includes targeted exams where dose is matched to clinical indication); or iterative reconstruction. Contrast material: [id number]; Contrast volume: 75 ml; Contrast route: INTRAVENOUS (IV); COMPARISON: CT ABDOMEN PELVIS W 01/14/2024 1:38 PM FINDINGS: Lungs: Mild dependent atelectasis or potentially infiltrate within the lower lobes bilaterally, right greater than left. Pleural spaces: No pleural effusion. Heart: The heart is mildly enlarged. No pericardial effusion. Liver: The liver is mildly atrophic and significantly nodular consistent with end-stage cirrhosis. Gallbladder and biliary ducts: From the gallbladder is moderately distended. Multiple calcified gallstones. No pericholecystic fluid. No bile duct dilatation. Pancreas: The pancreas is mildly atrophic. No pancreatic ductal dilatation. Spleen: Moderate splenomegaly. Adrenal glands: The bilateral adrenal glands are normal appearance. The bilateral adrenal glands are normal appearance. Kidneys and ureters: Mild cortical renal thinning. Several tiny, approximately 5 mm, low-density lesions are seen within the kidneys bilaterally, too small to characterize, but likely representing cysts. No additional follow-up per ACR guidelines. A 2 mm nonobstructing stone is seen within the left renal pelvis. No hydroureteronephrosis. Stomach and bowel: As described above, enhancing, dilated gastroesophageal varicosities are seen. Mild wall thickening within the gastric folds. Appendix: No evidence of appendicitis. The appendix not clearly seen and is either contracted or surgically absent. Intraperitoneal space: Trace free pelvic fluid. No free air or abscess. 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 This is unchanged when compared to the prior study. Multiple varicosities are seen within the upper abdomen with large varicosities seen within and surrounding the distal esophagus extending into the gastroesophageal junction. Mild calcific atherosclerotic plaque throughout the abdominal aorta without aneurysm. Lymph nodes: No lymphadenopathy within the abdomen and pelvis. Urinary bladder: Mild circumferential wall thickening within the urinary bladder. Reproductive: Multiple dilated enhancing vessels surround the uterus bilaterally, which can be seen with pelvic congestion syndrome, in the correct clinical context. No adnexal mass. Bones/joints: No acute osseous abnormality. Soft tissues: Tiny fat containing umbilical hernia. IMPRESSION: 1. Cholelithiasis. The gallbladder is moderately distended, likely representing physiological variation. If there is clinical suspicion for acute cholecystitis, then a right upper quadrant ultrasound can be considered. 2. Cirrhosis with splenomegaly, extensive gastroesophageal varicosities, and varicosities seen within the upper abdomen. 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 Trace free pelvic fluid, which may represent minimal ascites. 3. Mild circumferential wall thickening within the urinary bladder, which may be due to underdistension. Cystitis could have this appearance, in the correct clinical context. 4. Multiple dilated enhancing vessels surround the uterus bilaterally, which can be seen with pelvic congestion syndrome, in the correct clinical context. 5. Mild dependent atelectasis or infiltrate within the bilateral lower lobes, right greater than left. Dictated and Authenticated by: Bernie Kong MD. Orderin Venkat Giron MD
[2025-01-30] MEDS: MAGNESIUM SULFATE 2 GM/50 ML BAG IV_INF (23:17)
[2025-01-31] VITALS (21 sets, daily range): BP systolic 113–160; BP diastolic 54–86; PULSE 66–82; RESP 11–21; TEMP 36.4–37.4; O2SAT 91–96
--- NOTE | 2025-01-31 00:10 | W.PM.HP.N ---
Date of service: 01/31/25 Time of Service: 00:20 Assessment and Plan Assessment and plan (1) Esophageal varices: Assessment and plan: monitor, no active bleeding noted (2) Primary sclerosing cholangitis: Assessment and plan: followed by mutliple specialist. No acute intervention needed (3) Cirrhosis: Assessment and plan: noted (4) Anemia: Assessment and plan: no need for transfusion at this time, no obvious active bleeding (5) HTN (hypertension): Assessment and plan: start on hydralazine iv PRN as pt is npo (6) Hypomagnesemia: Status: Acute Assessment and plan: can replace orally when tolerating po (7) Nausea & vomiting: Status: Acute Assessment and plan: c/w zofran and scopolamine as needed (8) Enlarged gallbladder: Status: Acute Assessment and plan: no active intervention needed at this point. Consider GS consult if pain worsens (9) Abdominal pain: Status: Acute Assessment and plan: wean to po pain meds as tolerated History of Present Illness History of Present Illness Chief Complaint: abdominal pain Narrative: This is a 74-year-old female who presents with a 1 day to 2-day history of abdominal pain mostly in the right upper quadrant. Patient is known to have primary sclerosing cholangitis. While she was in the ED a workup was initiated including a CT scan which did show an enlarged gallbladder as well as a cirrhotic liver. Considering the fact the patient's pain was only controlled with IV narcotics decision was made to admit her for at least observation overnight. Patient states the last time she ate was in the morning today and she is also developed multiple episodes of emesis while she is here. In reviewing her diagnostic data she does have some respiratory alkalosis on her VBG as well as a mildly elevated total bili mildly decreased magnesium mild elevations in her alk phos mild anemia and thrombocytopenia. Was also noted that she was moderately hypertensive blood pressure 196/78. Patient states that she has talked to multiple surgeons about a cholecystectomy but considering her liver disease she has not had this performed. In regards to her coagulation panel vitals I do not see one drawn. Review of Systems All systems reviewed & are unremarkable except as noted in HPI and below PFSH All Active Problems (Updated 01/31/25 @ 00:19 by Mack Avendano MD) Abdominal pain (Acute) Enlarged gallbladder (Acute) Nausea & vomiting (Acute) Hypomagnesemia (Acute) Medical History HTN (hypertension) Esophageal varices Cirrhosis Primary sclerosing cholangitis Esophagitis Gastritis Anemia Surgical History EGD - IV Sedation Appendectomy 1967 Family History Other Heart disease Hyperlipidemia Personal history of malignant neoplasm Social History Smoking/Tobacco Use Status: Former Tobacco Use Smoking risk assessment performed?: Yes Alcohol Intake: never Drug use: Never Substance use type: does not use Do you feel safe at home: Yes Do you feel safe in your relationship?: Yes Meds Allergies and Home Medications Allergies Allergy/AdvReac Type Severity Reaction Status Date / Time chlorpheniramine polistirex Allergy Severe SOB AND Unverified 01/30/25 21:25 (From Tussionex) DIFFICULTY BREATHING hydrocodone polistirex (From Allergy Severe SOB AND Unverified 01/30/25 21:25 Tussionex) DIFFICULTY BREATHING nitrofurantoin (From Allergy Intermediate Other (See Unverified 01/30/25 21:25 Macrodantin) Comment) codeine AdvReac Intermediate DROWSINES Unverified 01/30/25 21:25 sulfamethoxazole (From AdvReac Unknown Skin Rash Unverified 01/30/25 21:25 Bactrim) trimethoprim (From Bactrim) AdvReac Unknown Skin Rash Unverified 01/30/25 21:25 Home Medications ?Medication ?Instructions ?Recorded ?Confirmed ?Type clobetasol 0.05 % topical cream 15 gm topical DAILY 03/04/13 01/30/25 History mupirocin calcium 2 % topical cream 15 g topical TID 02/27/14 01/30/25 History omeprazole 40 mg capsule,delayed 40 mg PO DAILY 02/16/15 01/30/25 History release Gnc Probiotic PO DAILY ##1 07/07/15 History docusate sodium 100 mg capsule 100 mg PO BID 07/07/15 01/30/25 History (Colace) nadolol 40 mg tablet 40 mg PO DAILY 07/07/15 01/30/25 History carvedilol 6.25 mg tablet mg 08/15/23 History nadolol 80 mg tablet mg PO DAILY 08/15/23 History pantoprazole 20 mg tablet,delayed mg PO 08/15/23 History release pantoprazole 40 mg tablet,delayed mg PO 08/15/23 History release ursodiol 300 mg capsule mg 08/15/23 History Exam Narrative Exam Narrative: HEENT-normocephalic atraumatic mucous membranes moist oropharynx clear no scleral icterus Neck-no lymphadenopathy no JVD no thyromegaly Cardiovascular-no murmur rubs or gallops regular rate and rhythm Pulm-clear to auscultation bilaterally good air exchange no accessory muscle use Abdomen-tenderness to palpation of the right upper quadrant decreased bowel sounds x 4 quadrants no peritoneal signs Extremity-no sinus clubbing or edema bilaterally Neurologic-cranial nerves II through XII intact as tested reflexes in upper extremity normal as tested [id number] female does not appear to be any distress Results Labs 01/30/25 21:32 01/30/25 21:32 Labs: Laboratory Results - last 24 hr 01/30/25 01/30/25 19:50 21:32 WBC 7.00 RBC 4.18 Hgb 12.6 Hct 38.2 MCV 91 MCH 30.1 MCHC 33.0 RDW 13.3 Plt Count 126 L MPV 10.1 Immature Gran % 0.4 Neutrophils % 65.0 Lymphocytes % 18.6 Monocytes % 9.9 Eosinophils % 5.4 Basophils % 0.7 Nucleated RBC % 0.0 Absolute Neutrophils 4.55 Absolute Lymphocytes 1.30 Absolute Monocytes 0.69 Absolute Eosinophils 0.38 Absolute Basophils 0.05 VBG pH 7.47 H VBG pCO2 31 L VBG pO2 69 VBG HCO3 22 L VBG Total CO2 20 L VBG O2 Saturation 95 VBG Base Excess -2 VBG Lactate 1.2 Sodium 140 Potassium 4.5 Chloride 105 Carbon Dioxide 22.7 Anion Gap 12.3 H BUN 14 Creatinine 0.8 Est GFR (CKD-EPI 2020) 78.24 Glucose 120 H Calcium 9.6 Magnesium 1.4 L Total Bilirubin 1.7 H AST 31 ALT 17 Alkaline Phosphatase 174 H Total Protein 8.1 Albumin 3.8 Lipase 38 Urine Color Yellow Urine Clarity Clear Urine pH 7.0 Ur Specific [place] 1.015 Urine Protein Negative Urine Ketones Negative Urine Blood Small H Urine Nitrite Negative Urine Bilirubin Negative Urine Urobilinogen 0.2 Ur Leukocyte Esterase Negative Urine RBC 5-10 H Urine WBC 0-2 Ur Epithelial Cells Rare Urine Crystals Negative Urine Bacteria Negative Urine Casts Negative Urine Mucus Trace Ur Culture Indicated? No Urine Glucose Negative Last Vital Signs Temp 36.8 C 01/30/25 21:22 Pulse 70 01/30/25 21:22 Resp 18 01/30/25 21:22 BP 196/78 H 01/30/25 21:22 Pulse Ox 96 01/30/25 21:22 Time Spent Time spent with Patient: <40 minutes Time was spent: preparing to see the patient(eg.review tests), obtaining and/or reviewing separately otained hiistory, ordering medications,tests, procedures, referring, communicating with other health home care rn, indepentently interpreting results, counseling the patient and care coordination
[2025-01-31] MEDS: Lactated Ringers 1,000 ML 125 ML IV ×2 (02:06→10:32)
[2025-01-31] MEDS: Scopolamine 1 MG/3 DAYS PATCH TD (02:07)
--- NOTE | 2025-01-31 02:56 | W.PC.ACHO ---
Registration Status: ADM JUANCARLOS Primary Language: Preferred Language: Divehi ED Information & Data Chief Complaint Abd Prob 01/30/25 21:22 Chief Complaint Abd Prob 01/30/25 21:18 Triage Note PT states that she is having 01/30/25 21:18 RUQ ABD pain with nausea that started yesterday. Medical / Surgical History (Last Reviewed 01/30/25 @ 23:42 by Mack Robledo MD) HTN (hypertension) Esophageal varices Cirrhosis Primary sclerosing cholangitis Esophagitis Gastritis Anemia (Last Reviewed 01/30/25 @ 23:42 by Mack Robledo MD) EGD - IV Sedation Appendectomy Most Recent Vital Signs Temperature 36.4 C L 01/31/25 01:20 Temperature Source Temporal Artery Scan 01/31/25 01:18 Pulse 82 01/31/25 01:20 Pulse 66 01/31/25 01:01 Respiratory Rate 18 01/31/25 01:20 Blood Pressure 160/81 H 01/31/25 01:20 Blood Pressure Mean 107 01/31/25 01:18 Pulse Oximetry 94 01/31/25 01:20 Oxygen Delivery Method Room Air 01/31/25 01:20 Oxygen Flow Rate 0 01/31/25 01:20 Pain Level 4 01/31/25 01:20 Comment dull achy 01/31/25 01:20 Allergies chlorpheniramine polistirex (From Tussionex) Allergy (Severe, Unverified 01/30/25 21:25) SOB AND DIFFICULTY BREATHING hydrocodone polistirex (From Tussionex) Allergy (Severe, Unverified 01/30/25 21:25) SOB AND DIFFICULTY BREATHING nitrofurantoin (From Macrodantin) Allergy (Intermediate, Unverified 01/30/25 21:25) Other (See Comment) unknown codeine Adverse Reaction (Intermediate, Unverified 01/30/25 21:25) DROWSINES sulfamethoxazole (From Bactrim) Adverse Reaction (Unknown, Unverified 01/30/25 21:25) Skin Rash trimethoprim (From Bactrim) Adverse Reaction (Unknown, Unverified 01/30/25 21:25) Skin Rash Active Medications Generic Name Dose Route Start Last Admin Trade Name Freq PRN Reason Stop Dose Admin Ringer's Solution 1,000 mls @ 125 mls/hr 01/31/25 00:00 01/31/25 02:06 IV 125 mls/hr INFUSION MILADY Administration Iohexol 75 ml 01/30/25 22:15 01/30/25 22:07 Omnipaque 350 Mg/Ml 100 Ml Btl IJ 03/01/25 23:59 75 ml DIRECTED MILADY Administration Sodium Chloride 50 ml 01/30/25 22:15 01/30/25 22:09 Normal Saline - Diluent 50 Ml Vial IJ 50 ml .FOR DI USE MILADY Administration IV IV Catheter Type [Right Peripheral IV Antecubital] IV Catheter Gauge [Right 20 Antecubital] Diet Orders Category Date Time Status Nothing Per Oral [DIET] Nutrition 01/31/25 00:01 Active Diagnostics 01/31/25 01/30/25 01/30/25 Range/Units 00:01 21:32 19:50 WBC Pending 7.00 (4.4-10.8) 10^3/uL RBC Pending 4.18 (3.93-5.22) 10^6/uL Hgb Pending 12.6 (11.2-15.7) g/dL Hct Pending 38.2 (36.0-46.0) % MCV Pending 91 (80-95) fL MCH Pending 30.1 (27.0-33.0) pg MCHC Pending 33.0 (32.0-36.0) % RDW Pending 13.3 (11.7-14.6) % Plt Count Pending 126 L (130-400) 10^3/uL MPV Pending 10.1 (8.0-11.0) fL Immature Gran % Pending 0.4 % Neutrophils % Pending 65.0 % Lymphocytes % Pending 18.6 % Monocytes % Pending 9.9 % Eosinophils % Pending 5.4 % Basophils % Pending 0.7 % Nucleated RBC % 0.0 (0.0-0.3) % Absolute Neutrophils Pending 4.55 (1.2-6.7) 10^3/uL Absolute Lymphocytes Pending 1.30 (1.2-3.4) 10^3/uL Absolute Monocytes Pending 0.69 (0.1-0.8) 10^3/uL Absolute Eosinophils Pending 0.38 (0.0-0.7) 10^3/uL Absolute Basophils Pending 0.05 (0.0-0.2) 10^3/uL VBG pH 7.47 H (7.31-7.41) VBG pCO2 31 L (41-51) mmHg VBG pO2 69 mmHg VBG HCO3 22 L (23-28) mmol/L VBG Total CO2 20 L (24-29) mmol/L VBG O2 Saturation 95 % VBG Base Excess -2 (-2-3) mmol/L VBG Lactate 1.2 (<or=2.0) mmol/L Sodium Pending 140 (136-145) mmol/L Potassium Pending 4.5 (3.5-5.1) mmol/L Chloride Pending 105 (98-107) mmol/L Carbon Dioxide Pending 22.7 (21.0-32.0) mmol/L Anion Gap Pending 12.3 H (3-11) mmol/L BUN Pending 14 (7-18) mg/dL Creatinine Pending 0.8 (0.55-1.02) mg/dL Est GFR (CKD-EPI 2020) Pending 78.24 (mL/min/1.73m2) Glucose Pending 120 H (74-106) mg/dL Calcium Pending 9.6 (8.5-10.1) mg/dL Magnesium 1.4 L (1.8-2.4) mg/dL Total Bilirubin Pending 1.7 H (0.2-1.0) mg/dL AST Pending 31 (15-37) U/L ALT Pending 17 (14-59) U/L Alkaline Phosphatase Pending 174 H (46-116) U/L Total Protein Pending 8.1 (6.4-8.2) g/dL Albumin Pending 3.8 (3.4-5.0) g/dL Lipase Pending 38 (<78) U/L Urine Color Yellow (Yellow) Urine Clarity Clear (Clear) Urine pH 7.0 (5-8) Ur Specific [place] 1.015 (1.005-1.025) Urine Protein Negative (Neg-Trace) mg/dL Urine Ketones Negative (Negative) mg/dL Urine Blood Small H (Negative) Urine Nitrite Negative (Negative) Urine Bilirubin Negative (Negative) Urine Urobilinogen 0.2 (Up to 0.2) mg/dL Ur Leukocyte Esterase Negative (Negative) Urine RBC 5-10 H (0-2) HPF Urine WBC 0-2 (0-5) HPF Ur Epithelial Cells Rare (Negative) HPF Urine Crystals Negative (Negative) HPF Urine Bacteria Negative (Negative) HPF Urine Casts Negative (Negative) LPF Urine Mucus Trace (Negative) Ur Culture Indicated? No Urine Glucose Negative (Negative) mg/dL Intake and Output - 24 Hour Total 01/30/25 21:01 thru 01/31/25 02:12 Intake Total 10 Balance 10 Weight 77.7 kg Intake: IV 10 Falls Risk Assessment History of Falls No History 01/31/25 01:20 Contributing Factors No Factors 01/30/25 21:22 Ambulatory Aids Independent 01/30/25 21:22 Tubes/Lines None 01/30/25 21:22 Gait Evaluation No gait disturbance 01/30/25 21:22 Cognition No cognitive impairment 01/30/25 21:22 Fall Total Score 0 01/31/25 01:20 Level of Risk Standard/Low Risk 01/31/25 01:20 Problems (Last Reviewed 01/30/25 @ 23:42 by Mack Robledo MD) Abdominal pain (Acute) Enlarged gallbladder (Acute) Nausea & vomiting (Acute) Hypomagnesemia (Acute) v v v v v v v v v Sending and/or Receiving Nurses: Please use comment section below to note any information pertinent to the patient hand-off not included above. Information / Comments: came in with RUQ pain. hx of gallstones and hepatic issues which have prevented surgical intervention in the past. over the last day or two has had nausea and some emesis in the ED VSS with exception to HTN, most recent BP 140/54 A&O, independent with ambulation. got magnesium repleated, 1L of NS, lyle 20g RAC Report received from: GILBERTO Russell @ [id number]
[2025-01-31] MEDS: MORPHine 2 MG/ML SYR IVP ×2 (04:59→12:59)
[2025-01-31] MEDS: Normal Saline Flush 10 ML SYR IVP ×2 (04:59→08:54)
[2025-01-31 06:52] LABS: Abs Immature Grans 0.01 10^3/uL (0.0-0.06); HCT 35.2 % (36.0-46.0); HGB 11.9 g/dL (11.2-15.7); Immature Grans % 0.2 %; MCH 31.2 pg (27.0-33.0); MCHC 33.8 % (32.0-36.0); MCV 92 fL (80-95); MPV 10.2 fL (8.0-11.0); RBC 3.81 10^6/uL (3.93-5.22); RDW 13.3 % (11.7-14.6); RDW-SD 45.3 fL; WBC 4.48 10^3/uL (4.4-10.8)
[2025-01-31 07:01] LABS: Lipase 33 U/L (<78)
[2025-01-31 07:14] LABS: ALT 17 U/L (14-59); AST 21 U/L (15-37); Albumin 3.3 g/dL (3.4-5.0); Alkaline Phosphatase 168 U/L (46-116); Anion Gap 8.6 mmol/L (3-11); BUN 13 mg/dL (7-18); Bilirubin, Total 1.7 mg/dL (0.2-1.0); CO2 25.4 mmol/L (21.0-32.0); Calcium 8.7 mg/dL (8.5-10.1); Chloride 108 mmol/L (98-107); Estimated GFR 91.83 (mL/min/1.73m2); Glucose 105 mg/dL (74-106); Potassium 4.0 mmol/L (3.5-5.1); Sodium 142 mmol/L (136-145); Total Protein 7.2 g/dL (6.4-8.2)
[2025-01-31 07:26] LABS: Platelet Count 97 10^3/uL (130-400)
[2025-01-31 08:45] LABS: Lab Add On Test DONE
[2025-01-31 08:59] LABS: Magnesium 1.6 mg/dL (1.8-2.4)
--- NOTE | 2025-01-31 09:12 | PDOC.CMIN ---
Date of service: 01/31/25 Time of Service: 09:12 Care Management Initial Assmt Initial Assessment Reason for Hospitalization: abdominal pain Functional Status/Living Situation Patient Presentation: Tonya was sitting up in bed when CM met with her. She was pleasant in interaction and engaged easily with CM. Cassandra was admitted with abdominal pain. She has known primary sclerosing cholangitis that is being followed in the outpatient setting. Tonya is also anemic however she has not required a transfusion. She was seen by surgery today and learned that no surgical intervention is planned. She has been NPO, however now that she is cleared by surgery, she will be able to eat, a fact she is very pleased about. Tonya lives in a single family home in [place]. She has 2 daughters, both 39 years old, born one day apart, who also live in [place]. Tonya explained that one of the girls is her biological daughter and the other was a foster child they raised. The girls remain very close and are supportive of their parents. 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 Tonya is independnet at baseline and does not receive any community services. Town of Residence: [place] Resides with: Spouse (Kyler Edwards) Significant Other/Family: Local Employment Status: Employed Instrumental Activities of Daily Living (ADLs): Independent Medications Medication Management: No Issues/Barriers identified Physical Functioning/Mobility Assistive Device: none Advance Directives Advance Directives: Do you have an Advance Directive: N 01/06/13, 17:17 AD On File at [facility]: N 01/06/13, 17:17 Date Asked 12/23/24 12/23/24, 14:30 AD Date Reviewed COLST On File at [facility] No 01/30/25, 22:50 COLST Date Scanned Code Status Resuscitation Status Full Code Portal Pt does not currently have a portal and education provided: Yes Insurance Coverage/Financial Issues Insurance: Medicare /[facility] Care Team Visit Care Team Role Provider Type Lucy Swann Primary Care Provider NON-[facility] STAFF PHYSICIAN Mack Robledo MD Emergency Provider [facility] STAFF PHYSICIAN Mack Avendano MD Admit Provider [facility] STAFF PHYSICIAN Attending Provider Discharge Potential Discharge Needs: PCP F/U Appt and Surgical F/U Appt Anticipated Barriers to Discharge: None Identified Patient/Family Education Needs: Review discharge instructions, discuss Ask Me Three Transportation: Private vehicle Plan: Anticipate Tonya will be discharged home with no new services when medically stable. She will follow up with her community providers and plan of care and transport with family. CM will follow and continue to support discharge planning efforts, Social Determinants of Health Screening Social Determinants of health last assessed in clinic: 01/31/25 Will the Patient Participate in the Screening?: Yes Do you worry about having a steady place to live?: no Problems where you live: no known problems In the past 12 months, have you had to go without electric, gas, oil or water in your home?: no 1. Within the past 12 months, we worried whether our food would run out before we got money to buy more.: Never true 2. Within the past 12 months, the food we bought just didn't last and we didn't have money to get more.: Never true Has lack of transportation kept you from medical appointments or from doing things needed for daily living?: no Has anyone in your life made you feel unsafe or unsupported?: no How hard is it for you to pay for the very basics like food, housing, medical care, and heating? Would you say it is:: Not hard at all Do you want help finding or keeping work or a job?: I do not need or want help If for any reason you need help with day-to-day activities such as bathing, preparing meals, shopping, managing finances, etc., do you get the help you need?: I don?t need any help How often do you feel lonely or isolated from those around you?: Never Do you speak a language other than Kyr[place] at home?: No Does the patient want assistance with any of the above?: No PFSH All Active Problems (Updated 01/31/25 @ 13:21 by Kyler Tyler) DVT prophylaxis (Acute) Abdominal pain (Acute) Enlarged gallbladder (Acute) Nausea & vomiting (Acute) Hypomagnesemia (Acute) Medical History HTN (hypertension) Esophageal varices Cirrhosis Primary sclerosing cholangitis Esophagitis Gastritis Anemia Surgical History EGD - IV Sedation Appendectomy 1967 Family History Other Heart disease Hyperlipidemia Personal history of malignant neoplasm Social History Smoking/Tobacco Use Status: Former Tobacco Use Smoking risk assessment performed?: Yes Alcohol Intake: never Drug use: Never Substance use type: does not use Housing: house Do you feel safe at home: Yes Do you feel safe in your relationship?: Yes
[2025-01-31] MEDS: Carvedilol 6.25 MG TAB PO ×2 (10:33→20:06)
--- NOTE | 2025-01-31 10:38 | W.SURGCON ---
Date of service: 01/31/25 Time of Service: 10:38 Assessment and Plan Assessment and plan (1) Primary sclerosing cholangitis: Assessment and plan: 74-year-old woman with sclerosing cholangitis as her underlying disease. She is hemodynamically stable and has a benign abdominal exam. In my opinion her symptoms are likely secondary to her underlying disease rather than her gallbladder. While somewhat poorly understood, there is recent evidence that suggests retaining the gallbladder with this underlying condition has protective benefits by minimizing bile stasis(theory). Further, cholecystectomy has been shown to be associated with quicker and more severe disease progression. Gallstones are extremely common with this underlying condition. Gallbladder cancer is also very common with this condition. Cholecystectomy is NOT performed prophylactically but reserved for when imaging shows a suspicious lesion. Even if surgery were an option, considering the severe intra-abdominal variceal disease she has, any surgery in her abdomen carries an extremely high?risk of bleeding to . Overall recommendations: No surgery # Symptoms, while similar to gallbladder stone symptoms, are probably from her underlying disease. I suspect she will have more and more attacks like this as her disease progresses. # Gallbladder should be left in situ if at all possible for possible protective benefits in preventing more rapid disease progression. # She can discuss with her PCP about having as needed pain medication at home so she does not have to come to the hospital when she gets the symptoms. # Any intra-abdominal procedure on her should be done at a tertiary center with a large blood bank and all blood products available. History of Present Illness Narrative: The patient is a 74-year-old woman with sclerosing cholangitis. She has cirrhosis. She has known gallstones. She has severe varices disease. She reports that she almost bled to from 1 episode of varices bleeding a number of years ago at a different hospital. She has been experiencing right upper quadrant abdominal pain. She has had this happen before in the past but says it was a couple of years ago. She has had known gallstones for many years. PFSH All Active Problems (Updated 01/31/25 @ 13:21 by Kyler Tyler) DVT prophylaxis (Acute) Abdominal pain (Acute) Enlarged gallbladder (Acute) Nausea & vomiting (Acute) Hypomagnesemia (Acute) Medical History HTN (hypertension) Esophageal varices Cirrhosis Primary sclerosing cholangitis Esophagitis Gastritis Anemia Surgical History EGD - IV Sedation Appendectomy 1967 Family History Other Heart disease Hyperlipidemia Personal history of malignant neoplasm Social History Smoking/Tobacco Use Status: Former Tobacco Use Smoking risk assessment performed?: Yes Alcohol Intake: never Drug use: Never Substance use type: does not use Housing: house Do you feel safe at home: Yes Do you feel safe in your relationship?: Yes Exam Narrative Exam Narrative: Gen: Non-toxic, comfortable and interactive Neuro: Alert and oriented x3 Psych: Good mood and affect. Good insight and understanding into condition. Chest: Non-labored breathing, no wheezing, no visible shortness of breath. Heart: Regular Abdomen: Soft, nondistended and grossly nontender. No Boss sign. Results Last Vital Signs Temp 97.9 F 01/31/25 07:08 Pulse 67 01/31/25 10:36 Resp 18 01/31/25 07:08 BP 147/60 H 01/31/25 10:36 Pulse Ox 94 01/31/25 07:08 Labs 01/31/25 06:40 01/31/25 06:40 Labs: Laboratory Results - last 24 hr 01/30/25 01/30/25 01/31/25 19:50 21:32 06:40 WBC 7.00 4.48 RBC 4.18 3.81 L Hgb 12.6 11.9 Hct 38.2 35.2 L MCV 91 92 MCH 30.1 31.2 MCHC 33.0 33.8 RDW 13.3 13.3 Plt Count 126 L 97 L MPV 10.1 10.2 Immature Gran % 0.4 0.2 Neutrophils % 65.0 61.8 Lymphocytes % 18.6 20.3 Monocytes % 9.9 11.4 Eosinophils % 5.4 5.6 Basophils % 0.7 0.7 Nucleated RBC % 0.0 0.0 Absolute Neutrophils 4.55 2.77 Absolute Lymphocytes 1.30 0.91 L Absolute Monocytes 0.69 0.51 Absolute Eosinophils 0.38 0.25 Absolute Basophils 0.05 0.03 VBG pH 7.47 H VBG pCO2 31 L VBG pO2 69 VBG HCO3 22 L VBG Total CO2 20 L VBG O2 Saturation 95 VBG Base Excess -2 VBG Lactate 1.2 Sodium 140 142 Potassium 4.5 4.0 Chloride 105 108 H Carbon Dioxide 22.7 25.4 Anion Gap 12.3 H 8.6 BUN 14 13 Creatinine 0.8 0.7 Est GFR (CKD-EPI 2020) 78.24 91.83 Glucose 120 H 105 Calcium 9.6 8.7 Magnesium 1.4 L 1.6 L Total Bilirubin 1.7 H 1.7 H AST 31 21 ALT 17 17 Alkaline Phosphatase 174 H 168 H Total Protein 8.1 7.2 Albumin 3.8 3.3 L Lipase 38 33 Urine Color Yellow Urine Clarity Clear Urine pH 7.0 Ur Specific [place] 1.015 Urine Protein Negative Urine Ketones Negative Urine Blood Small H Urine Nitrite Negative Urine Bilirubin Negative Urine Urobilinogen 0.2 Ur Leukocyte Esterase Negative Urine RBC 5-10 H Urine WBC 0-2 Ur Epithelial Cells Rare Urine Crystals Negative Urine Bacteria Negative Urine Casts Negative Urine Mucus Trace Ur Culture Indicated? No Urine Glucose Negative Add-On Test Request DONE
[2025-01-31] MEDS: Pantoprazole 20 MG TABCR PO (11:53)
--- NOTE | 2025-01-31 13:05 | PGE_ITS ---
Date of Service Date of service: 01/31/25 Time of Service: 13:05 Assessment and Plan Assessment and plan (1) Abdominal pain: Status: Acute Assessment and plan: Most c/w biliary colic clinically, which fits with her history of some chronic biliary disease and dietary indescretion CT and labs resassuring, did show enlarged GB No significant ascitites so reasonable not to cover for SBP I think we can progress diet, but will ask for surgery eval first, pending (2) Primary sclerosing cholangitis: Assessment and plan: With assocatefollowed by hepatology h/o cirrhosis, her labs are similar to recent baseline h/o varicies, resume carvedilol therapy (3) HTN (hypertension): Assessment and plan: given hydralazine iv PRN as pt is npo, will resume outpatient losartan (looked at PCP record, confirmed with pt) (4) Hypomagnesemia: Status: Acute Assessment and plan: replaced IV (5) Esophagitis: Assessment and plan: resume PPI (6) DVT prophylaxis: Status: Acute Assessment and plan: enoxaparin even though plts low with cirrhosis, risk of clot higher than non- cirrhotic. Subjective Subjective Patient reports: feels better and voiding w/o difficulty; denies vomiting, shortness of breath or fever Interval history since last seen: Feeling better this morning, but she did get morpine prior to my evaluation. She recapped the history of two bouts of severe pain, both after fatty foods. Has had biliary disease in the past and surgeon at [facility] felt she was too high risk to remove GB. Usually watches her diet more closely Exam Narrative Exam Narrative: GEN: A&O, NAD HEENT: mucous membranes moist oropharynx clear no scleral icterus Cardiovascular-no murmur rubs or gallops regular rate and rhythm Pulm-clear to auscultation bilaterally good air exchange no accessory muscle use Abdomen- +BS, mild tenderness to palpation of the right upper quadrant decreased bowel sounds x 4 quadrants no guarding/rebound. no fluid wave or distention Extremity-no cyanosis clubbing or edema bilaterally Objective Last Vital Signs Temp 36.6 C 01/31/25 11:06 Pulse 68 01/31/25 11:06 Resp 18 01/31/25 11:06 BP 138/58 L 01/31/25 11:06 Pulse Ox 96 01/31/25 11:06 Laboratory Results - last 24 hr 01/30/25 01/30/25 01/31/25 19:50 21:32 06:40 WBC 7.00 4.48 RBC 4.18 3.81 L Hgb 12.6 11.9 Hct 38.2 35.2 L MCV 91 92 MCH 30.1 31.2 MCHC 33.0 33.8 RDW 13.3 13.3 Plt Count 126 L 97 L MPV 10.1 10.2 Immature Gran % 0.4 0.2 Neutrophils % 65.0 61.8 Lymphocytes % 18.6 20.3 Monocytes % 9.9 11.4 Eosinophils % 5.4 5.6 Basophils % 0.7 0.7 Nucleated RBC % 0.0 0.0 Absolute Neutrophils 4.55 2.77 Absolute Lymphocytes 1.30 0.91 L Absolute Monocytes 0.69 0.51 Absolute Eosinophils 0.38 0.25 Absolute Basophils 0.05 0.03 VBG pH 7.47 H VBG pCO2 31 L VBG pO2 69 VBG HCO3 22 L VBG Total CO2 20 L VBG O2 Saturation 95 VBG Base Excess -2 VBG Lactate 1.2 Sodium 140 142 Potassium 4.5 4.0 Chloride 105 108 H Carbon Dioxide 22.7 25.4 Anion Gap 12.3 H 8.6 BUN 14 13 Creatinine 0.8 0.7 Est GFR (CKD-EPI 2020) 78.24 91.83 Glucose 120 H 105 Calcium 9.6 8.7 Magnesium 1.4 L 1.6 L Total Bilirubin 1.7 H 1.7 H AST 31 21 ALT 17 17 Alkaline Phosphatase 174 H 168 H Total Protein 8.1 7.2 Albumin 3.8 3.3 L Lipase 38 33 Urine Color Yellow Urine Clarity Clear Urine pH 7.0 Ur Specific [place] 1.015 Urine Protein Negative Urine Ketones Negative Urine Blood Small H Urine Nitrite Negative Urine Bilirubin Negative Urine Urobilinogen 0.2 Ur Leukocyte Esterase Negative Urine RBC 5-10 H Urine WBC 0-2 Ur Epithelial Cells Rare Urine Crystals Negative Urine Bacteria Negative Urine Casts Negative Urine Mucus Trace Ur Culture Indicated? No Urine Glucose Negative Add-On Test Request DONE Time Spent with Patient Time Spent with Patient: 35-49 minutes Time was spent: preparing to see the patient(eg.review tests), obtaining and/or reviewing separately [facility], ordering medications,tests, procedures, referring, communicating with other health care transition mgr, indepentently interpreting results, counseling the patient and care coordination
[2025-01-31] MEDS: Losartan 50 MG TAB PO (20:06)
[2025-01-31] MEDS: Ursodiol 300 MG CAP PO (20:06)
[2025-01-31] MEDS: Ibuprofen 400 MG TAB PO (21:10)
[2025-02-01 03:48] VITALS: BP 115/45; PULSE 72; RESP 18; TEMP 36.6; O2SAT 92
[2025-02-01 07:18] VITALS: BP 130/71; PULSE 68; RESP 17; TEMP 36.4; O2SAT 93
[2025-02-01] MEDS: Ursodiol 300 MG CAP PO (08:59)
[2025-02-01] MEDS: Carvedilol 6.25 MG TAB PO (08:59)
[2025-02-01] MEDS: Losartan 25 MG TAB PO (08:59)
[2025-02-01] MEDS: Pantoprazole 20 MG TABCR PO (08:59)
--- NOTE | 2025-02-01 10:03 | DSE_ITS ---
Date of service: 02/01/25 Time of Service: 10:03 DS: Diagnosis Discharge Diagnosis (1) Primary sclerosing cholangitis: Discharge Plan Disposition Patient Disposition: Home Condition: Stable Discharge Details Reason For Visit: abdominal pain Admit Date/Time: 01/31/25 00:00 Admit Provider: Mack Avendano Attending Provider: Mack Avendano Primary Care Provider: Lucy Swann Hospital Course Hospital Course: 74 yo F with cirrhosis and portal HTN secondary to primary biliary sclerangitis who presented with RUQ abdominal pain and nausea/vomiting after fatty meals. She was treated with supportive care including ondansatron and scopolamine patch and IV morphine and her symptoms improved. She was evaluated by surgery who felt this was a manifestation of her chronic condition and she is better off avoiding cholecystectomy. Her liver function was at her baseline. Her magnesium was supplemented. She has had trouble tolerating hydrocodone and codeine orally in the past, but tolerated IV morphine. She was given prn hydromorphone for occaisional use, #9 tablets after discussion of precautions. No other controlled meds on VPMS. Follow up 1 week with PCP Home Meds and New Rx's Prescriptions: New ondansetron 4 mg tablet,disintegrating 4 mg PO Q8H PRNQty: 20 1RF hydromorphone 2 mg tablet 1 mg PO Q6H PRNQty: 9 0RF Continued clobetasol 60 GM cream 15 gm Topical DAILY mupirocin calcium 15 GM cream 15 g Topical TID docusate sodium [Colace] 100 MG capsule 100 mg PO BID GNC Probiotic PO DAILY Qty: 1 losartan 25 mg tablet 25 mg PO DAILY Patient Comments: TAKE ONE TABLET BY MOUTH EVERY MORNING (PLUS 50MG AT NIGHT) losartan 50 mg tablet 50 mg PO HS Patient Comments: TAKE ONE TABLET BY MOUTH EVERY DAY carvedilol 6.25 mg tablet 6.25 mg PO BID Patient Comments: TAKE ONE TABLET BY MOUTH TWICE A DAY WITH MEALS pantoprazole 20 mg tablet,delayed release (DR/EC) 20 mg PO DAILY Patient Comments: TAKE ONE TABLET BY MOUTH EVERY DAY ursodiol 300 mg capsule 300 mg PO BID Patient Comments: TAKE ONE CAPSULE BY MOUTH TWICE A DAY Discontinued nadolol 40 MG tablet 40 mg PO DAILY nadolol 80 mg tablet 80 mg PO DAILY Patient Comments: TAKE ONE TABLET BY MOUTH EVERY DAY +CIPLA [employer] ONLY+ Discharge Instructions Instructions: Primary biliary cholangitis (primary biliary cirrhosis) Additional Instructions: you can take the nausea medication under the tongue and the pain medication as needed. Follow up with liver monitoring as planned. You can take up to 2000mg of acetaminophen a day but should not take ibuprofen, naproxen, or other NSAIDs Activity:: Activity as Tolerated Equipment/Supplies:: No Equipment Needed Diet:: Low Fat Discharge Orders Discharge Orders: Discharge Order (Routine); Ordered 02/01/25 Ordered By: Kyler Tyler DS: Summary Time Spent with Patient providing and/or coordinating discharge services: Greater than 30 minutes Status at Discharge Functional status at discharge: independent ambulation Overall status at discharge: patient is back to baseline Mental Status: mental status grossly normal Speech and Movement: speech and movement normal Mood: congruent mood Affect: normal affect Exam Narrative Exam Narrative: GEN: A&O, NAD HEENT: mucous membranes moist oropharynx clear no scleral icterus Cardiovascular-no murmur rubs or gallops regular rate and rhythm Pulm-clear to auscultation bilaterally good air exchange no accessory muscle use Abdomen- +BS, minimal tenderness to deep palpation of the right upper quadrant, no guarding/rebound. no fluid wave or distention Extremity-no cyanosis clubbing or edema bilaterally Psych Mental Status: mental status grossly normal Speech and Movement: speech and movement normal Mood: congruent mood Affect: normal affect DS: Data Vitals/I&O Vitals and I&O: Vital Signs Temperature 36.4 C L 02/01/25 07:18 Temperature Source Temporal Artery Scan 02/01/25 07:18 Pulse 68 02/01/25 07:18 Pulse Rhythm Regular 01/31/25 01:20 Pulse 66 01/31/25 01:01 Respiratory Rate 17 02/01/25 07:18 Respiratory Effort Normal, Non-Labored 01/31/25 01:20 Respiratory Depth Normal 01/31/25 01:20 Respiratory Pattern Normal 01/31/25 01:20 Blood Pressure 130/71 02/01/25 07:18 Blood Pressure Mean 90 02/01/25 07:18 Pulse Oximetry 93 02/01/25 07:18 Oxygen Delivery Method Room Air 02/01/25 07:18 Oxygen Flow Rate 0 02/01/25 07:18 Pain Level 6 02/01/25 07:18 Comment pain in upper right quadrant, primary RN notified 02/01/25 07:18 Intake & Output 01/31/25 01/31/25 02/01/25 11:59 23:59 11:59 Intake Total 2009 3910 1900 / 3910 Output Total 430 / 1380 950 / 1380 300 / 300 Balance 1580 / 2530 950 / 2530 -300 / -300 Weight 77.7 kg 80.104 [place] [address] 1000 / 3010 Oral 900 / 900 Output: Urine 400 / 1350 950 / 1350 300 / 300 Emesis Other: Urine Color Yellow Yellow Yellow Urine Appearance Clear Clear Clear Urine Odor None Normal None Emesis Description Bile PFSH All Active Problems (Updated 02/01/25 @ 09:59 by Kyler Tyler) DVT prophylaxis (Acute) Abdominal pain (Acute) Enlarged gallbladder (Acute) Nausea & vomiting (Acute) Hypomagnesemia (Acute) Medical History HTN (hypertension) Esophageal varices Cirrhosis Primary sclerosing cholangitis Esophagitis Gastritis Anemia Surgical History EGD - IV Sedation Appendectomy 1967 Family History Other Heart disease Hyperlipidemia Personal history of malignant neoplasm Social History Smoking/Tobacco Use Status: Former Tobacco Use Smoking risk assessment performed?: Yes Alcohol Intake: never Drug use: Never Substance use type: does not use Housing: house Do you feel safe at home: Yes Do you feel safe in your relationship?: Yes Time Spent with Patient Time Spent with Patient: <45 minutes Time was spent: preparing to see the patient(eg.review tests), obtaining and/or reviewing separately otained hiistory, ordering medications,tests, procedures, referring, communicating with other health care team coordinator scheduler, indepentently interpreting results, counseling the patient and care coordination
[2025-02-01] MEDS: HYDROmorphone 2 MG TAB 1 MG PO (11:40)
== END 2025-02-01 11:44 | disposition home or self-care (01) ==
LOC: ER 01-31 00:47 → MS 01-31 01:14
PROVIDERS: Admitting Provider Hospitalist; Emergency Provider Emergency Medicine; PCP Family Medicine; Responsible Provider Family Medicine; Visit Provider Hospitalist
DX: K83.01 Primary sclerosing cholangitis (principal); K74.60 Unspecified cirrhosis of liver; I86.8 Varicose veins of other specified sites; D64.9 Anemia, unspecified; I10 Essential (primary) hypertension; E83.42 Hypomagnesemia; R11.2 Nausea with vomiting, unspecified; R10.11 Right upper quadrant pain; K80.20 Calculus of gallbladder without cholecystitis without obstruction; D69.6 Thrombocytopenia, unspecified; E87.3 Alkalosis; K76.6 Portal hypertension; K29.70 Gastritis, unspecified, without bleeding
CPT/HCPCS: 00123; 36415; 80053; 82805; 83690; 96361; 96365; 96366; 96375; 96376; 99222; 99285; 74177; 81003; 81015; 83605; 83735; 85025; 99239; G0378; J2270; J2405; J3475; J3490

== ENCOUNTER 2025-06-23 10:08 | Outpatient (REF) | payer MEDICARE, BC, SELFPAY ==
[2025-06-23 16:16] LABS: HCT 35.5 % (36.0-46.0); HGB 12.0 g/dL (11.2-15.7); MCH 31.0 pg (27.0-33.0); MCHC 33.8 % (32.0-36.0); MCV 92 fL (80-95); MPV 11.6 fL (8.0-11.0); Platelet Count 126 10^3/uL (130-400); RBC 3.87 10^6/uL (3.93-5.22); RDW 13.3 % (11.7-14.6); RDW-SD 44.6 fL; WBC 4.99 10^3/uL (4.4-10.8)
[2025-06-23 16:28] LABS: ALT 12 U/L (10-49); AST 23 U/L (<34); Albumin 3.7 g/dL (3.2-5.0); Alkaline Phosphatase 149 U/L (46-116); Anion Gap 10.7 mmol/L (3-11); BUN 16 mg/dL (9-23); Bilirubin, Total 1.60 mg/dL (0.2-1.2); CO2 23.3 mmol/L (20.0-31.0); Calcium 9.2 mg/dL (8.3-10.6); Chloride 110 mmol/L (98-107); Glucose 107 mg/dL (74-106); Potassium 3.9 mmol/L (3.5-5.1); Sodium 144 mmol/L (136-145); Total Protein 7.3 g/dL (5.7-8.2)
[2025-06-24 10:04] LABS: CA 19-9 49 U/mL (<35)
== END 2025-06-23 10:09 | disposition home or self-care (01) ==
LOC: NCHCN 10:08
PROVIDERS: PCP Family Medicine; Visit Provider Family Medicine
DX: K83.01 Primary sclerosing cholangitis (principal)
CPT/HCPCS: 80053; 85027; 86301

== ENCOUNTER 2025-06-23 12:07 | Emergency (ER) | payer MEDICARE, BC, SELFPAY ==
--- NOTE | 2025-06-23 12:15 | RT.EKG_ITS ---
APPROVED REPORT Exam: Resting ECG Reason for Exam: Chest Pain Patient Location: E HR:74 bpm ECG Measurements Heart Rate 74 AXIS RI 174 P 69 QRSd 75 QRS 12 QT 393 T 51 QTc 434 Conclusion Sinus rhythm...normal P axis, V-rate 60- 99 No STEMI
[2025-06-23 12:18] VITALS: BP 174/78; PULSE 74; RESP 18; TEMP 36.4; O2SAT 98
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
[2025-06-23 14:27] LABS: Abs Immature Grans 0.01 10^3/uL (0.0-0.06); HCT 35.6 % (36.0-46.0); HGB 12.1 g/dL (11.2-15.7); Immature Grans % 0.2 %; MCH 30.8 pg (27.0-33.0); MCHC 34.0 % (32.0-36.0); MCV 91 fL (80-95); MPV 10.0 fL (8.0-11.0); Platelet Count 109 10^3/uL (130-400); RBC 3.93 10^6/uL (3.93-5.22); RDW 13.4 % (11.7-14.6); RDW-SD 44.6 fL; WBC 5.16 10^3/uL (4.4-10.8)
[2025-06-23 14:43] LABS: Lipase 38 U/L (<53)
[2025-06-23 14:44] LABS: Troponin I 3 ng/L (<35)
[2025-06-23 14:45] LABS: ALT 11 U/L (10-49); AST 20 U/L (<34); Albumin 3.9 g/dL (3.2-5.0); Alkaline Phosphatase 149 U/L (46-116); Anion Gap 9.3 mmol/L (3-11); BUN 14 mg/dL (9-23); Bilirubin, Total 1.60 mg/dL (0.2-1.2); CO2 24.7 mmol/L (20.0-31.0); Calcium 9.3 mg/dL (8.3-10.6); Chloride 109 mmol/L (98-107); Glucose 94 mg/dL (74-106); Potassium 3.7 mmol/L (3.5-5.1); Sodium 143 mmol/L (136-145); Total Protein 7.7 g/dL (5.7-8.2)
[2025-06-23] MEDS: Normal Saline Flush 10 ML SYR IVP (15:13)
[2025-06-23] MEDS: Normal Saline - Diluent 50 ML VIAL IJ (15:13)
[2025-06-23] MEDS: Omnipaque 350 MG/ML 100 ML BTL IJ (15:14)
[2025-06-23 16:23] LABS: Troponin I 6 ng/L (<35)
[2025-06-23 16:31] VITALS: BP 172/77; PULSE 74; RESP 15; O2SAT 97
== END 2025-06-23 16:40 | disposition home or self-care (01) ==
PROVIDERS: Emergency Provider Registered Nurse Emergency; PCP Family Medicine
DX: S20.214A Contusion of middle front wall of thorax, initial encounter (principal); V49.49XA Driver injured in collision with other motor vehicles in traffic accident, initial encounter
CPT/HCPCS: 99283; 99285; 74177; 80053; 83690; 93005; 71260; 84484; 85025; 93010; J3490

== ENCOUNTER → 2025-06-30 00:33 | Outpatient (CLI) | payer MEDICARE, BC, SELFPAY ==
--- NOTE | 2025-06-30 | DI.MAMMO_ITS ---
Exam(s) MAMMO SCREENING EXAM: MAMMO SCREENING CLINICAL HISTORY: SCREENING,Z12.31 TECHNIQUE: Bilateral full field digital CC and MLO mammographic images were obtained with 3D tomosynthesis and utilizing computer aided detection (CAD). COMPARISON: Comparison is made with prior examinations. FINDINGS: Masses/Architectural Distortion: No suspicious masses or areas of architectural distortion are present. Microcalcifications: No suspicious pleomorphic-type are seen. Skin Thickening/Nipple Retraction: None. IMPRESSION: 1. No significant interval change with no specific features of malignancy noted. 2. Unless there is more urgent need, screening mammography is recommended, as per [employer] guidelines. BI-RADS Category 1 - Negative Breast Density - Category C - The breast are heterogeneously dense, which may obscure small masses. Breast density Category C or D implies that the patient has dense breast tissue. Dense breast tissue can make it harder to find cancer on a mammogram. Dense breast tissue is also associated with an increased risk of breast cancer. This information about the result of the mammogram report was provided to the patient to raise their awareness. Use this report when you speak with the patient about their risks for breast cancer, which includes their family history. At that time, you may recommend additional screening tests (Ultrasound or MRI) as these tests may add significant information. A negative radiographic report should not delay biopsy if a dominant or clinically suspicious mass is present. Up to ten percent of cancers are not identified on mammography. A negative report may reinforce clinical impression. Adenosis and dense breasts may obscure an underlying neoplasm. False positive reports average 6 to 10%. Patient will receive a letter notifying them of these results.
== END ==
LOC: DI 00:33
PROVIDERS: PCP Family Medicine; Visit Provider Family Medicine
DX: Z12.31 Encounter for screening mammogram for malignant neoplasm of breast (principal)
CPT/HCPCS: 77063; 77067